=== PATIENT | male | born 1955 ===

== ENCOUNTER 2017-09-09 10:43 | Inpatient (IN) | payer OTHER ==
[2017-09-09 10:44] VITALS: BMI 36.5
[2017-09-09] MEDS ORDERED: Sodium Chloride 0.9% 1,000 ML IV ONE (11:14)
--- NOTE | 2017-09-09 11:53 | RAD ---
HISTORY: Chest pain COMPARISON: Comparison chest 02/15/2013 TECHNIQUE: Chest PA and lateral FINDINGS: LUNGS: Lung vinson are hyperinflation with flattened diaphragms consistent with underlying COPD or and or emphysema. Mild linear scarring changes left lung base. PLEURA: No significant pleural effusion identified. No pneumothorax apparent. CARDIOVASCULAR: Normal. Mild multilevel degenerative spondylosis of the thoracic spine with mild dextroscoliosis at the thoracic region. OSSEOUS STRUCTURES: Minor multilevel degenerative spondylosis of the thoracic spine VISUALIZED UPPER ABDOMEN: Normal. OTHER FINDINGS: None. IMPRESSION: Lung vinson are hyperinflation with flattened diaphragms consistent with underlying COPD or and or emphysema. Mild linear scarring changes left lung base.
[2017-09-09 11:59] LABS: BASO # 0.1 K/uL (0.0-0.2); BASO % 1.1 % (0.0-2.0); EOS # 0.1 K/uL (0.0-0.7); EOS % 1.9 % (0.0-4.0); HEMOGLOBIN 14.5 g/dL (12.0-18.0); LYMPH # 0.9 K/uL (1.0-4.3); LYMPH % 15.7 % (20.0-40.0); MEAN CELL VOLUME 90.1 fL (80.0-94.0); MEAN CORPUSCULAR HEMOGLOBIN 31.2 pg (27.0-31.0); MEAN CORPUSCULAR HGB CONC 34.6 g/dL (33.0-37.0); MEAN PLATELET VOLUME 8.5 fL (7.2-11.7); MONO # 0.5 K/uL (0.0-0.8); NEUT % 72.3 % (50.0-75.0); NRBC % 0.1 % (0.0-2.0); RBC 4.66 Mil/uL (4.40-5.90); RED CELL DISTRIBUTION WIDTH 13.4 % (11.5-14.5); WHITE BLOOD COUNT 5.5 K/uL (4.8-10.8)
[2017-09-09 12:02] LABS: INR 0.9; PROTHROMBIN TIME 10.2 SECONDS (9.7-12.2)
[2017-09-09 12:06] LABS: URINE BILIRUBIN NEGATIVE (NEGATIVE); URINE BLOOD NEGATIVE (NEGATIVE); URINE CLARITY Clear (Clear); URINE COLOR Yellow (YELLOW); URINE GLUCOSE (UA) NORMAL (Normal); URINE LEUKOCYTE ESTERASE NEG Leu/uL (Negative); URINE PROTEIN NEGATIVE (NEGATIVE); URINE UROBILINOGEN NORMAL mg/dL (0.2-1.0)
[2017-09-09 12:20] LABS: ALB/GLOB RATIO 1.7 (1.0-2.1); ALBUMIN 4.4 g/dL (3.5-5.0); ALT/SGPT 37 U/L (21-72); AST/SGOT 41 U/L (17-59); BLOOD UREA NITROGEN 19 mg/dL (9-20); CALCIUM 9.1 mg/dl (8.6-10.4); GFR AFRICAN-AMERICAN > 60; GFR NON-AFRICAN AMERICAN > 60
[2017-09-09 12:28] LABS: B-TYPE NATRIURETIC PEPTIDE 118 pg/mL (0-900)
--- NOTE | 2017-09-09 12:46 | C.PDOC ---
History Of Present Illness 61 yo male w/PMHx of CAD s/p PTCA 2007, come in for evaluation of retrosternal pain intermittent on exertion gradually developed for past week. Pt sts, "get localized pain over my chest area when walk". AT rest, asymptomatic. Last card. work up- 3-4 yrs ago. Otherwise, pt denies fever, chills, recent illness, headache, dizziness, dyspnea, palpitation, abd. pain, V/D, back pain, swelling. Ambulatory in ED, not in any apparent distress. Pt reports, took Plavix 75 mg, Metoprolol 50 mg, Lisinopril this AM. Time Seen by Provider: 09/09/17 11:09 Chief Complaint (Nursing): Chest Pain History Per: Patient Past Medical History Reviewed: Historical Data, Nursing Documentation, Vital Signs Vital Signs: Last Vital Signs Temp 98.2 F 09/09/17 10:57 Pulse 52 L 09/09/17 11:55 Resp 19 09/09/17 11:55 BP 148/88 09/09/17 11:55 Pulse Ox 99 09/09/17 13:38 - Medical History PMH: Asthma, HTN, Hypercholesterolemia Denies: Chronic Kidney Disease Surgical History: Appendectomy - [facility] Procedures COLONOSCOPY (03/17/14) INSERTION OF ONE VASCULAR STENT (02/04/13) INSRT OF DRUG-ELUTING CORON ARTERY STENTS(S) (02/04/13) LEFT HEART CARDIAC CATH (02/04/13) LT HEART ANGIOCARDIOGRAM (02/04/13) PERCUTANEOUS TRANSLUMINAL CORONARY ANGIOPLASTY [PTCA] (02/04/13) PROCEDURE ON SINGLE VESSEL (02/04/13) VENOUS CATHETERIZATION NEC (02/04/13) Family History: States: No Known Family Hx - Social History Hx Tobacco Use: No Hx Alcohol Use: No Hx Substance Use: No - Immunization History Hx Tetanus Toxoid Vaccination: No Hx Influenza Vaccination: Yes Hx Pneumococcal Vaccination: No Review Of Systems Except As Marked, All Systems Reviewed And Found Negative. Constitutional: Negative for: Fever, Chills ENT: Negative for: Throat Pain, Throat Swelling Cardiovascular: Positive for: Chest Pain. Negative for: Palpitations, Paroxysmal Noc. Dyspnea, Edema, Light Headedness Respiratory: Positive for: Shortness of Breath. Negative for: Cough, SOB with Excertion, Pleuritic Pain, Wheezing Gastrointestinal: Negative for: Vomiting, Abdominal Pain, Diarrhea Musculoskeletal: Negative for: Neck Pain, Back Pain Skin: Negative for: Rash Neurological: Negative for: Weakness, Numbness, Altered Mental Status, Headache , Dizziness Physical Exam - Physical Exam Appears: Well, Non-toxic, No Acute Distress Skin: Normal Color, Warm, Dry, No Rash Head: Normacephalic Eye(s): bilateral: PERRL Ear(s): Bilateral: Normal Nose: No Flaring, No Discharge Oral Mucosa: Moist, No Drooling Throat: No Erythema, No Drooling Neck: Trachea Midline, Supple Chest: Symmetrical, No Tenderness Cardiovascular: Rhythm Regular, No Murmur, No JVD Respiratory: No Decreased Breath Sounds, No Accessory Muscle Use, No Stridor, No Wheezing Gastrointestinal/Abdominal: Soft, No Tenderness, No Distention, No Guarding Back: No CVA Tenderness Extremity: Normal ROM, No Pedal Edema Neurological/Psych: Oriented x3, Normal Speech ED Course And Treatment - Laboratory Results Result Diagrams: 09/09/17 11:47 09/09/17 11:47 Lab Interpretation: Abnormal ECG: Interpreted By Me, Viewed By Me Interpretation Of ECG: Sinus horace@47/min, NAD, no acute T wave or ST-T changes. O2 Sat by Pulse Oximetry: 99 Pulse Ox Interpretation: Normal - Radiology CXR: Interpreted by Me, Read By Radiologist CXR Interpretation: Yes: No Acute Disease Progress Note: Pt was OBS in ED for 2 hours and remained stable. On re- evaluation, pt is afebrile, hemodynamicaly stable. Non-toxic. Tolerate Po well in ED. PulseOx 99% rA. Neck: SUpple, (-) JVD, (-) carotid bruits B/L. ENT: no acute findings. Lungs: CTA B/L, BS equal B/L. CVS: (+)S1S2, reg. (-) murmur. Abd: benign, (-) guarding, (-) rebound, (-) RLQ tenderness. Troponin I (+) 0.144. EKG (+) horace, no acute T wave or ST-T changes. results review and discussed with pt, admission recommend. case discussed with and admission arranged. Disposition - Disposition Disposition: HOSPITALIZED Disposition Time: 12:44 Condition: STABLE - Clinical Impression Clinical Impression: Chest pain, Elevated troponin, Symptomatic bradycardia
--- NOTE | 2017-09-09 15:23 | CP.PCM.HP ---
<Anastasia VangDenise - Last Filed: 09/09/17 15:15> History of Present Illness - History of Present Illness History of Present Illness: CC: chest pain with exertion HPI: Patient is a 61 y/o M with PMHx of CAD, TX and stent in 2012, HTN, asthma, IGT who presents today for chest pain. Patient says today he was walking to work which he normally does everyday with no limitation. Today patient had a tightness and burning in his chest which he rated 6/10 and some shortness of breath and nausea. Patient had to take a break in the middle of his walk. He also noticed some right arm heaviness and numbness of note 1 week ago patient had a similar episode of arm heaviness after exercise. Patient says his chest pain is different than when he had his TX in 2012 because it resolves with rest. At rest patient has no complaints. His arm heaviness has resolved. He denies any headaches, vomiting, abdominal pain, diarrhea, or constipation. PMD: Dr. Cancino (clinic- last went 1 year ago) Cardio: used to see Dr. Alvarez PMHx: CAD, TX and stent in 2012, HTN, asthma, IGT Psurg: stent 2012, hernia as a child, SBO as a child Famhx: Mom: DMII, Dad: asthma, CAD Soc: denies tobacco or drugs, used to drink alcohol socially 8 years ago Present on Admission - Present on Admission Any Indicators Present on Admission: No History of DVT/PE: No History of Uncontrolled Diabetes: No Urinary Catheter: No Decubitus Ulcer Present: No Review of Systems - Constitutional Constitutional: absent: Anorexia, Chills - EENT Eyes: absent: Blurred Vision, Change in Vision Nose/Mouth/Throat: absent: Nasal Congestion, Sore Throat, Neck Pain - Cardiovascular Cardiovascular: Chest Pain, Chest Pain with Activity, Dyspnea, Dyspnea on Exertion, Palpitations. absent: Chest Pain at Rest, Claudication, Irregular Heart Rhythm, Leg Edema, Syncope - Respiratory Respiratory: Dyspnea on Exertion. absent: Cough, Dyspnea - Gastrointestinal Gastrointestinal: absent: Abdominal Pain, Constipation, Diarrhea, Heartburn, Nausea, Vomiting - Genitourinary Genitourinary: absent: Difficulty Urinating - Musculoskeletal Musculoskeletal: Numbness (left arm ), Tingling (left arm ). absent: Muscle Cramps, Muscle Weakness - Integumentary Integumentary: absent: Rash - Neurological Neurological: absent: Syncope, Weakness Past Patient History - Past Medical History & Family History Past Medical History?: Yes - Past Social History Smoking Status: Former Smoker - CARDIAC Hx Hypercholesterolemia: Yes Hx Hypertension: Yes - PULMONARY Hx Asthma: Yes - NEUROLOGICAL Hx Neurological Disorder: No - HEENT Hx HEENT Problems: No - RENAL Hx Chronic Kidney Disease: No - ENDOCRINE/METABOLIC Hx Endocrine Disorders: No - HEMATOLOGICAL/ONCOLOGICAL Hx Blood Disorders: No - INTEGUMENTARY Hx Dermatological Problems: No - MUSCULOSKELETAL/RHEUMATOLOGICAL Hx Musculoskeletal Disorders: No - GASTROINTESTINAL Hx Gastrointestinal Disorders: No - GENITOURINARY/GYNECOLOGICAL Hx Genitourinary Disorders: No - PSYCHIATRIC Hx Substance Use: No - SURGICAL HISTORY Hx Appendectomy: Yes - ANESTHESIA Hx Anesthesia: Yes Hx Anesthesia Reactions: No Hx Malignant Hyperthermia: No Meds Allergies/Adverse Reactions: Allergies Allergy/AdvReac Type Severity Reaction Status Date / Time No Known Allergies Allergy Verified 09/09/17 10:59 Physical Exam - Constitutional Appears: Non-toxic, No Acute Distress - Head Exam Head Exam: ATRAUMATIC, NORMAL INSPECTION, NORMOCEPHALIC - Eye Exam Eye Exam: EOMI, Normal appearance - ENT Exam ENT Exam: Mucous Membranes Moist - Neck Exam Neck exam: Negative for: Tenderness - Respiratory Exam Respiratory Exam: Wheezes (mild expiratory wheezing ), NORMAL BREATHING PATTERN. absent: Rales, Respiratory Distress, Stridor - Cardiovascular Exam Cardiovascular Exam: REGULAR RHYTHM, RRR, +S1, +S2 - GI/Abdominal Exam GI & Abdominal Exam: Normal Bowel Sounds, Soft. absent: Tenderness - Extremities Exam Extremities exam: Positive for: normal inspection. Negative for: pedal edema, tenderness - Back Exam Back exam: NORMAL INSPECTION. absent: paraspinal tenderness, rash noted - Neurological Exam Neurological exam: Alert, CN II-XII Intact, Oriented x3 - Psychiatric Exam Psychiatric exam: Normal Affect, Normal Mood - Skin Skin Exam: Intact, Normal Color, Warm Results - Vital Signs Recent Vital Signs: Last Vital Signs Temp 98.1 F 09/09/17 14:37 Pulse 52 L 09/09/17 14:37 Resp 20 09/09/17 14:37 BP 141/96 H 09/09/17 14:37 Pulse Ox 98 09/09/17 14:37 - Labs Result Diagrams: 09/09/17 11:47 09/09/17 11:47 Labs: Laboratory Results - last 24 hr 09/09/17 09/09/17 09/09/17 11:47 11:47 11:47 WBC 5.5 RBC 4.66 Hgb 14.5 Hct 42.0 MCV 90.1 MCH 31.2 H MCHC 34.6 RDW 13.4 Plt Count 218 MPV 8.5 Neut % (Auto) 72.3 Lymph % (Auto) 15.7 L [place] % (Auto) 9.0 Eos % (Auto) 1.9 Baso % (Auto) 1.1 Neut # (Auto) 4.0 Lymph # (Auto) 0.9 L [place] # (Auto) 0.5 Eos # (Auto) 0.1 Baso # (Auto) 0.1 PT 10.2 INR 0.9 APTT 32 Sodium 139 Potassium 4.2 Chloride 104 Carbon Dioxide 25 Anion Gap 14 BUN 19 Creatinine 0.7 L Est GFR ( Amer) > 60 Est GFR (Non-Af Amer) > 60 Random Glucose 106 Calcium 9.1 Total Bilirubin 0.5 AST 41 ALT 37 Alkaline Phosphatase 45 Troponin I 0.1440 H* NT-Pro-B Natriuret Pep 118 Total Protein 7.0 Albumin 4.4 Globulin 2.6 Albumin/Globulin Ratio 1.7 Urine Color Urine Clarity Urine pH Ur Specific [place] Urine Protein Urine Glucose (UA) Urine Ketones Urine Blood Urine Nitrate Urine Bilirubin Urine Urobilinogen Ur Leukocyte Esterase Urine RBC (Auto) 09/09/17 11:57 WBC RBC Hgb Hct MCV MCH MCHC RDW Plt Count MPV Neut % (Auto) Lymph % (Auto) [place] % (Auto) Eos % (Auto) Baso % (Auto) Neut # (Auto) Lymph # (Auto) [place] # (Auto) Eos # (Auto) Baso # (Auto) PT INR APTT Sodium Potassium Chloride Carbon Dioxide Anion Gap BUN Creatinine Est GFR ( Amer) Est GFR (Non-Af Amer) Random Glucose Calcium Total Bilirubin AST ALT Alkaline Phosphatase Troponin I NT-Pro-B Natriuret Pep Total Protein Albumin Globulin Albumin/Globulin Ratio Urine Color Yellow Urine Clarity Clear Urine pH 6.0 Ur Specific [place] 1.015 Urine Protein Negative Urine Glucose (UA) Normal Urine Ketones Negative Urine Blood Negative Urine Nitrate Negative Urine Bilirubin Negative Urine Urobilinogen Normal Ur Leukocyte Esterase Neg Urine RBC (Auto) 2 Assessment & Plan - Assessment and Plan (Free Text) Assessment: Chest pain r/o ACS admitted to telemetry Troponin I .1440 f/u DISHA x 2 and EKG f/u TSH and free T4 f/u d dimer EKG in ED no acute changes ASA given, Plavix 300mg given, Lovenox 55mg sc BID started continue Plavix 75mg po daily, ASA 81mg po daily, Crestor 20mg daily f/u UDS f/u ECHO Dr. Hardy consulted, help appreciated HTN Lopressor 25mg po BID Lisinopril 40 mg po daily Hx CAD continue Plavix 75mg po daily, ASA 81mg po daily, Crestor 20mg daily f/u lipid panel IGT managed with diet f/u HgA1c Prophylaxis SCDs, Lovenox 55mg sc BID heart healthy moderate carb diet <Primo Maria H - Last Filed: 09/09/17 16:57> Results - Vital Signs Recent Vital Signs: Last Vital Signs Temp 98.4 F 09/09/17 15:10 Pulse 45 L 09/09/17 15:10 Resp 20 09/09/17 15:10 BP 140/86 09/09/17 15:10 Pulse Ox 97 09/09/17 15:10 - Labs Result Diagrams: 09/09/17 11:47 09/09/17 11:47 Labs: Laboratory Results - last 24 hr 09/09/17 09/09/17 09/09/17 11:47 11:47 11:47 WBC 5.5 RBC 4.66 Hgb 14.5 Hct 42.0 MCV 90.1 MCH 31.2 H MCHC 34.6 RDW 13.4 Plt Count 218 MPV 8.5 Neut % (Auto) 72.3 Lymph % (Auto) 15.7 L [place] % (Auto) 9.0 Eos % (Auto) 1.9 Baso % (Auto) 1.1 Neut # (Auto) 4.0 Lymph # (Auto) 0.9 L [place] # (Auto) 0.5 Eos # (Auto) 0.1 Baso # (Auto) 0.1 PT 10.2 INR 0.9 APTT 32 Sodium 139 Potassium 4.2 Chloride 104 Carbon Dioxide 25 Anion Gap 14 BUN 19 Creatinine 0.7 L Est GFR ( Amer) > 60 Est GFR (Non-Af Amer) > 60 Random Glucose 106 Calcium 9.1 Total Bilirubin 0.5 AST 41 ALT 37 Alkaline Phosphatase 45 Troponin I 0.1440 H* NT-Pro-B Natriuret Pep 118 Total Protein 7.0 Albumin 4.4 Globulin 2.6 Albumin/Globulin Ratio 1.7 Urine Color Urine Clarity Urine pH Ur Specific [place] Urine Protein Urine Glucose (UA) Urine Ketones Urine Blood Urine Nitrate Urine Bilirubin Urine Urobilinogen Ur Leukocyte Esterase Urine RBC (Auto) 09/09/17 11:57 WBC RBC Hgb Hct MCV MCH MCHC RDW Plt Count MPV Neut % (Auto) Lymph % (Auto) [place] % (Auto) Eos % (Auto) Baso % (Auto) Neut # (Auto) Lymph # (Auto) [place] # (Auto) Eos # (Auto) Baso # (Auto) PT INR APTT Sodium Potassium Chloride Carbon Dioxide Anion Gap BUN Creatinine Est GFR ( Amer) Est GFR (Non-Af Amer) Random Glucose Calcium Total Bilirubin AST ALT Alkaline Phosphatase Troponin I NT-Pro-B Natriuret Pep Total Protein Albumin Globulin Albumin/Globulin Ratio Urine Color Yellow Urine Clarity Clear Urine pH 6.0 Ur Specific [place] 1.015 Urine Protein Negative Urine Glucose (UA) Normal Urine Ketones Negative Urine Blood Negative Urine Nitrate Negative Urine Bilirubin Negative Urine Urobilinogen Normal Ur Leukocyte Esterase Neg Urine RBC (Auto) 2 Attending/Attestation - Attestation I have personally seen and examined this patient.: Yes I have fully participated in the care of the patient.: Yes I have reviewed all pertinent clinical information: Yes Notes (Text): 09/09/17 16:53 Medical attending: Patient was seen and examined by me as well. Agree with the above note by the resident The patient reported that yesterday he was working out on [employer] hard and then this morning when he woke up was feeling fine Then suddenly while working to work today he developed the chest discomfort and arm numbness. The first troponin was borderline positive - he previously had stenting before. Also the patient will need to have additional troponins as well as a D-Dimer. I don't think he has a PE but will check a D-Dimer. The patient was given lovenix, plavix loading dose, and also ASA, statin Primo Maria
[2017-09-09 17:19] LABS: BARBITURATES, UR NEGATIVE (NEGATIVE); BENZODIAZEPINES, UR NEGATIVE (NEGATIVE); OPIATES, UR NEGATIVE (NEGATIVE); PHENCYCLIDINE, UR NEGATIVE (NEGATIVE)
[2017-09-09 19:04] LABS: CK-MB 2.12 ng/mL (0.0-3.38)
[2017-09-09 19:06] LABS: TROPONIN I 0.178 ng/mL (0.00-0.120)
[2017-09-09] MEDS: Enoxaparin 60 mg Syringe SC SCH (21:50)
[2017-09-09 22:29] LABS: CK-MB 1.57 ng/mL (0.0-3.38)
[2017-09-09 22:31] LABS: TROPONIN I 0.147 ng/mL (0.00-0.120)
[2017-09-10 06:28] LABS: BASO % 0.6 % (0.0-2.0); EOS # 0.2 K/uL (0.0-0.7); EOS % 5.1 % (0.0-4.0); HEMOGLOBIN 13.7 g/dL (12.0-18.0); LYMPH % 21.2 % (20.0-40.0); MEAN CELL VOLUME 91.2 fL (80.0-94.0); MEAN CORPUSCULAR HEMOGLOBIN 30.4 pg (27.0-31.0); MEAN CORPUSCULAR HGB CONC 33.4 g/dL (33.0-37.0); MEAN PLATELET VOLUME 9.2 fL (7.2-11.7); MONO # 0.5 K/uL (0.0-0.8); MONO % 10.3 % (0.0-10.0); NEUT # 3.1 K/uL (1.8-7.0); NEUT % 62.8 % (50.0-75.0); NRBC % 0.1 % (0.0-2.0); RBC 4.51 Mil/uL (4.40-5.90); RED CELL DISTRIBUTION WIDTH 13.7 % (11.5-14.5); WHITE BLOOD COUNT 4.9 K/uL (4.8-10.8)
[2017-09-10 07:29] LABS: ALB/GLOB RATIO 1.5 (1.0-2.1); ALBUMIN 3.6 g/dL (3.5-5.0); ALT/SGPT 33 U/L (21-72); AST/SGOT 33 U/L (17-59); BLOOD UREA NITROGEN 19 mg/dL (9-20); CALCIUM 8.6 mg/dl (8.6-10.4); GFR AFRICAN-AMERICAN > 60; GFR NON-AFRICAN AMERICAN > 60; HDL CHOLESTEROL 45 mg/dL (30-70)
[2017-09-10 07:40] LABS: LDL CHOLESTEROL 87 mg/dL (0-129)
[2017-09-10] MEDS ORDERED: Albuterol-Ipratrop 3 mg / 0.5 (3 ml) UD INH PRN (07:45)
[2017-09-10] MEDS ORDERED: Albuterol-Ipratrop 3 mg / 0.5 (3 ml) UD INH ONE (08:00)
--- NOTE | 2017-09-10 09:52 | CP.PCM.PN ---
<Anastasia Vang - Last Filed: 09/10/17 11:07> Subjective - Date & Time of Evaluation Date of Evaluation: 09/10/17 Time of Evaluation: 07:00 - Subjective Subjective: PGY2- Progress note for Dr. Maria Patient seen and examined at bedside. Patient in NAD. Patient says he has no chest pain at rest, but the chest pain comes back with sitting up and moving around. Patient says his right arm numbness and heaviness has resolved. Patient denies any shortness of breath, palpitations, abdominal pain, nausea, vomiting, constipation, or diarrhea. Objective - Vital Signs/Intake and Output Vital Signs (last 24 hours): Temp Pulse Resp BP Pulse Ox 98.1 F 50 L 20 137/81 97 09/10/17 07:10 09/10/17 08:43 09/10/17 07:10 09/10/17 07:10 09/10/17 07:10 Intake and Output: 09/10/17 09/10/17 06:59 18:59 Intake Total 400 Balance 400 - Medications Medications: Current Medications Albuterol/Ipratropium (Duoneb 3 Mg/0.5 Mg (3 Ml) Ud) 3 ml INH RQ6 PRN PRN Reason: Wheezing Aspirin (Aspirin Chewable) 81 mg PO DAILY [facility] Carvedilol (Coreg) 3.125 mg PO BID [facility] Clopidogrel Bisulfate (Plavix) 75 mg PO DAILY [facility] Enoxaparin Sodium (Lovenox) 55 mg SC Q12 [facility] Last Admin: 09/09/17 21:50 Dose: 55 mg Lisinopril (Zestril) 40 mg PO DAILY [facility] Rosuvastatin Calcium (Crestor) 20 mg PO HS [facility] Last Admin: 09/09/17 21:50 Dose: 20 mg - Labs Labs: 09/10/17 06:20 09/10/17 06:20 PT 10.2 SECONDS (9.7-12.2) 09/09/17 11:47 INR 0.9 09/09/17 11:47 APTT 32 SECONDS (21-34) 09/09/17 11:47 - Additional Findings Additional findings: - Constitutional Appears: Non-toxic, No Acute Distress - Head Exam Head Exam: ATRAUMATIC, NORMAL INSPECTION, NORMOCEPHALIC - Eye Exam Eye Exam: EOMI, Normal appearance - ENT Exam ENT Exam: Mucous Membranes Moist - Neck Exam Neck exam: Negative for: Tenderness - Respiratory Exam Respiratory Exam: Wheezes (mild expiratory wheezing ), NORMAL BREATHING PATTERN. absent: Rales, Respiratory Distress, Stridor - Cardiovascular Exam Cardiovascular Exam: REGULAR RHYTHM, RRR, +S1, +S2 - GI/Abdominal Exam GI & Abdominal Exam: Normal Bowel Sounds, Soft. absent: Tenderness - Extremities Exam Extremities exam: Positive for: normal inspection. Negative for: pedal edema, tenderness - Back Exam Back exam: NORMAL INSPECTION. absent: paraspinal tenderness, rash noted - Neurological Exam Neurological exam: Alert, CN II-XII Intact, Oriented x3 - Psychiatric Exam Psychiatric exam: Normal Affect, Normal Mood - Skin Skin Exam: Intact, Normal Color, Warm Assessment and Plan - Assessment and Plan (Free Text) Assessment: Chest pain r/o ACS admitted to telemetry Troponin I .1440 --> .1780 --> .1470 d dimer negative TSH: .38 free T4: 1.27 EKG in ED no acute changes ASA given, Plavix 300mg given, Lovenox 55mg sc BID started continue Plavix 75mg po daily, ASA 81mg po daily, Crestor 20mg daily UDS negative f/u ECHO Dr. Hardy consulted, help appreciated HTN Lopressor stopped due to low HR, started on Coreg 3.125mg po BID Lisinopril 40 mg po daily Hx CAD continue Plavix 75mg po daily, ASA 81mg po daily, Crestor 20mg daily f/u lipid panel IGT managed with diet HgA1c: 5.9 Prophylaxis SCDs, Lovenox 55mg sc BID heart healthy moderate carb diet <Primo Maria - Last Filed: 09/10/17 13:43> Objective - Vital Signs/Intake and Output Vital Signs (last 24 hours): Temp Pulse Resp BP Pulse Ox 98.1 F 52 L 20 137/81 97 09/10/17 07:10 09/10/17 11:28 09/10/17 07:10 09/10/17 07:10 09/10/17 07:10 Intake and Output: 09/10/17 09/10/17 06:59 18:59 Intake Total 400 Balance 400 - Medications Medications: Current Medications Albuterol/Ipratropium (Duoneb 3 Mg/0.5 Mg (3 Ml) Ud) 3 ml INH RQ6 PRN PRN Reason: Wheezing Aspirin (Aspirin Chewable) 81 mg PO DAILY [facility] Last Admin: 09/10/17 10:09 Dose: 81 mg Carvedilol (Coreg) 3.125 mg PO BID [facility] Last Admin: 09/10/17 10:04 Dose: Not Given Clopidogrel Bisulfate (Plavix) 75 mg PO DAILY [facility] Last Admin: 09/10/17 10:02 Dose: 75 mg Enoxaparin Sodium (Lovenox) 55 mg SC Q12 [facility] Last Admin: 09/10/17 10:02 Dose: 55 mg Lisinopril (Zestril) 40 mg PO DAILY [facility] Last Admin: 09/10/17 10:02 Dose: 40 mg Rosuvastatin Calcium (Crestor) 20 mg PO HS [facility] Last Admin: 09/09/17 21:50 Dose: 20 mg - Labs Labs: 09/10/17 06:20 09/10/17 06:20 PT 10.2 SECONDS (9.7-12.2) 09/09/17 11:47 INR 0.9 09/09/17 11:47 APTT 32 SECONDS (21-34) 09/09/17 11:47 Attending/Attestation - Attestation I have personally seen and examined this patient.: Yes I have fully participated in the care of the patient.: Yes I have reviewed all pertinent clinical information, including history, physical exam and plan: Yes Notes (Text): 09/10/17 13:43 Medical attending: Patient was seen and examined by me, reviewed the above note by medical center representative and agree with the above note. The patient reported that he was doing much better today. The heaviness that was in his right arm as well as chest pressure had resolved overnight. His cardiac enzymes down trended were still pending echo at this moment as well as a cardiology evaluation. The 12-lead EKGs overnight were stable He remains on the twice a day subcutaneous Lovenox twice a day. He also remains on the Plavix as well as well as blood pressure control medication. Were also continue with the statin as well as the baby aspirin and low-dose beta yeny Primo Maria
[2017-09-10] MEDS: Enoxaparin 60 mg Syringe SC SCH ×2 (10:02→21:23)
--- NOTE | 2017-09-10 19:30 | CARD ---
APPROVED REPORT EKG Measurement Heart [id number] <Conclusion> Sinus bradycardia Otherwise normal ECG
--- NOTE | 2017-09-10 19:30 | CARD ---
APPROVED REPORT EKG Measurement Heart [id number] <Conclusion> Sinus bradycardia Otherwise normal ECG
--- NOTE | 2017-09-10 19:30 | CARD ---
APPROVED REPORT EKG Measurement Heart [id number] [id number] <Conclusion> Sinus bradycardia Otherwise normal ECG
--- NOTE | 2017-09-10 21:42 | CARD ---
APPROVED REPORT EXAM: Two-dimensional and M-mode echocardiogram with Doppler and color Doppler. Other Information Quality : GoodRhythm : INDICATION Cardiac Disease: CAD Chest Pain ELEVATED TROPONIN 2D DIMENSIONS IVSd0.9 (0.7-1.1cm)LVDd4.5 (3.9-5.9cm) PWd0.9 (0.7-1.1cm)LVDs3.0 (2.5-4.0cm) FS (%) 34.3 %LVEF (%)66.0 (>50%) CO2.0 L/min M-Mode DIMENSIONS RVDd2.32 (2.1-3.2cm)Left Atrium (MM)3.19 (2.5-4.0cm) IVSd0.75 (0.7-1.1cm)Aortic Root3.17 (2.2-3.7cm) LVDd4.87 (4.0-5.6cm)Aortic Cusp Exc.2.04 (1.5-2.0cm) PWd0.93 (0.7-1.1cm)FS (%) 40 % LVDs2.92 (2.0-3.8cm)LVEF (%)70 (>50%) Aortic Valve AI P 1/2 [id number] Mitral Valve MV E Yriiighl93.4cm/sMV A Swcilqqq61.2cm/sE/A ratio1.3 TDI E/Lateral E'0.0E/Medial E'0.0 Tricuspid Valve TR Peak [id number]/sTR Peak [id number] LEFT VENTRICLE The left ventricle is normal size. There is normal left ventricular wall thickness. Left ventricle systolic function is normal. The Ejection Fraction is 65-70%. There is normal LV segmental wall motion. The left ventricular diastolic function is normal. No left ventricle thrombus noted on this study. RIGHT VENTRICLE The right ventricle is normal size. The right ventricular systolic function is normal. ATRIA The left atrium size is normal. The right atrium size is normal. AORTIC VALVE The aortic valve is mildly to moderately sclerotic. The aortic valve is trileaflet. There is trace to mild aortic regurgitation. There is no aortic valvular stenosis. There is no aortic valvular vegetation. MITRAL VALVE Mitral annular calcification is mild. There is no evidence of mitral valve prolapse. There is no mitral valve stenosis. Mitral regurgitation is trace to mild. TRICUSPID VALVE The tricuspid valve is normal in structure. There is mild tricuspid regurgitation. Right ventricular systolic pressure is estimated at less than 30 mmHg. There is no pulmonary hypertension. There is no tricuspid valve prolapse or vegetation. There is no tricuspid valve stenosis. PULMONIC VALVE The pulmonic valve is not well visualized. There is no pulmonic valvular regurgitation. GREAT VESSELS The aortic root is normal in size. The IVC is normal in size and collapses >50% with inspiration. PERICARDIAL EFFUSION There is no pericardial effusion. There is no pleural effusion. <Conclusion> The left ventricle is normal size. Left ventricle systolic function is normal. The Ejection Fraction is 65-70%. The left ventricular diastolic function is normal. The right ventricle is normal size. The right ventricular systolic function is normal. The left atrium size is normal. The right atrium size is normal. There is trace to mild aortic regurgitation. Mitral regurgitation is trace to mild. There is mild tricuspid regurgitation.
[2017-09-11 06:41] LABS: BASO % 0.4 % (0.0-2.0); EOS # 0.2 K/uL (0.0-0.7); EOS % 4.4 % (0.0-4.0); HEMOGLOBIN 13.9 g/dL (12.0-18.0); LYMPH % 18.8 % (20.0-40.0); MEAN CELL VOLUME 91.3 fL (80.0-94.0); MEAN CORPUSCULAR HEMOGLOBIN 30.9 pg (27.0-31.0); MEAN CORPUSCULAR HGB CONC 33.8 g/dL (33.0-37.0); MONO # 0.5 K/uL (0.0-0.8); MONO % 8.5 % (0.0-10.0); NEUT # 3.6 K/uL (1.8-7.0); NEUT % 67.9 % (50.0-75.0); NRBC % 0.1 % (0.0-2.0); RBC 4.49 Mil/uL (4.40-5.90); RED CELL DISTRIBUTION WIDTH 13.4 % (11.5-14.5); WHITE BLOOD COUNT 5.4 K/uL (4.8-10.8)
[2017-09-11 06:47] LABS: ALB/GLOB RATIO 1.6 (1.0-2.1); ALBUMIN 3.9 g/dL (3.5-5.0); ALT/SGPT 29 U/L (21-72); AST/SGOT 33 U/L (17-59); BLOOD UREA NITROGEN 23 mg/dL (9-20); CALCIUM 8.9 mg/dl (8.6-10.4); GFR AFRICAN-AMERICAN > 60; GFR NON-AFRICAN AMERICAN > 60
[2017-09-11] MEDS: Enoxaparin 60 mg Syringe SC SCH ×2 (09:30→22:03)
--- NOTE | 2017-09-11 13:48 | CP.PCM.PN ---
<Anastasia Vang - Last Filed: 09/11/17 17:20> Subjective - Date & Time of Evaluation Date of Evaluation: 09/11/17 Time of Evaluation: 07:00 - Subjective Subjective: PGY2- Progress Note for Dr. Maria Patient seen and examined at bedside and in no acute distress. Patient says he has not been having any chest pain but feels his heart "shake" when he sits up or moves around. He says it is hard to explain, but maybe it is the feeling of his heart beating fast. Patient otherwise has no complaints. Patient denies dizziness, headache, shortness of breath, abdominal pain, nausea, vomiting, constipation, or diarrhea. Of note, patient got up and walked down the wang with us without difficulty and without any pain. Objective - Vital Signs/Intake and Output Vital Signs (last 24 hours): Temp Pulse Resp BP Pulse Ox 98.2 F 77 20 164/99 H 96 09/11/17 07:00 09/11/17 12:00 09/11/17 07:00 09/11/17 09:29 09/11/17 07:00 - Medications Medications: Current Medications Albuterol/Ipratropium (Duoneb 3 Mg/0.5 Mg (3 Ml) Ud) 3 ml INH RQ6 PRN PRN Reason: Wheezing Last Admin: 09/11/17 07:47 Dose: 3 ml Aspirin (Aspirin Chewable) 81 mg PO DAILY [facility] Last Admin: 09/11/17 09:30 Dose: 81 mg Carvedilol (Coreg) 3.125 mg PO BID [facility] Last Admin: 09/11/17 09:30 Dose: 3.125 mg Clopidogrel Bisulfate (Plavix) 75 mg PO DAILY [facility] Last Admin: 09/11/17 09:30 Dose: 75 mg Enoxaparin Sodium (Lovenox) 55 mg SC Q12 [facility] Last Admin: 09/11/17 09:30 Dose: 55 mg Lisinopril (Zestril) 40 mg PO DAILY [facility] Last Admin: 09/11/17 09:30 Dose: 40 mg Rosuvastatin Calcium (Crestor) 20 mg PO HS [facility] Last Admin: 09/10/17 21:23 Dose: 20 mg - Labs Labs: 09/11/17 06:21 09/11/17 06:21 PT 10.2 SECONDS (9.7-12.2) 09/09/17 11:47 INR 0.9 09/09/17 11:47 APTT 32 SECONDS (21-34) 09/09/17 11:47 - Constitutional Appears: Non-toxic, No Acute Distress - Head Exam Head Exam: ATRAUMATIC, NORMAL INSPECTION, NORMOCEPHALIC - Eye Exam Eye Exam: EOMI, Normal appearance - ENT Exam ENT Exam: Mucous Membranes Moist - Neck Exam Neck Exam: Full ROM. absent: Tenderness - Respiratory Exam Respiratory Exam: Clear to Ausculation Bilateral, NORMAL BREATHING PATTERN. absent: Rales, Rhonchi, Wheezes, Respiratory Distress, Stridor - Cardiovascular Exam Cardiovascular Exam: REGULAR RHYTHM, RRR, +S1, +S2 - GI/Abdominal Exam GI & Abdominal Exam: Soft, Normal Bowel Sounds. absent: Tenderness - Extremities Exam Extremities Exam: Normal Inspection. absent: Pedal Edema, Tenderness - Back Exam Back Exam: NORMAL INSPECTION - Neurological Exam Neurological Exam: Alert, Awake, Oriented x3 - Psychiatric Exam Psychiatric exam: Normal Affect, Normal Mood - Skin Skin Exam: Intact, Normal Color, Warm Assessment and Plan - Assessment and Plan (Free Text) Assessment: Chest pain r/o ACS admitted to telemetry Troponin I .1440 --> .1780 --> .1470 d dimer negative TSH: .38 free T4: 1.27 EKG in ED no acute changes ASA given, Plavix 300mg given, Lovenox 55mg sc BID started continue Plavix 75mg po daily, ASA 81mg po daily, Crestor 20mg daily UDS negative ECHO: LVEF 70, trace to mild aortic regurg, mitral regurg trace to mild, mild tricuspid regurg Dr. Hardy consulted, help appreciated patient for cardiac cath tomorrow, NPO after midnight HTN Lopressor stopped due to low HR, started on Coreg 3.125mg po BID Lisinopril 40 mg po daily Hx CAD continue Plavix 75mg po daily, ASA 81mg po daily, Crestor 20mg daily lipid panel: triglycerides: 122, cholesterol: 147, LDL: 87, HDL: 45 IGT managed with diet HgA1c: 5.9 Prophylaxis SCDs, Lovenox 55mg sc BID heart healthy moderate carb diet <Primo Maria - Last Filed: 09/11/17 19:10> Objective - Vital Signs/Intake and Output Vital Signs (last 24 hours): Temp Pulse Resp BP Pulse Ox 98.0 F 61 20 133/85 97 09/11/17 15:00 09/11/17 16:22 09/11/17 15:00 09/11/17 15:00 09/11/17 15:00 Intake and Output: 09/11/17 09/12/17 18:59 06:59 Intake Total 400 Balance 400 - Medications Medications: Current Medications Albuterol/Ipratropium (Duoneb 3 Mg/0.5 Mg (3 Ml) Ud) 3 ml INH RQ6 PRN PRN Reason: Wheezing Last Admin: 09/11/17 07:47 Dose: 3 ml Aspirin (Aspirin Chewable) 81 mg PO DAILY [facility] Last Admin: 09/11/17 09:30 Dose: 81 mg Carvedilol (Coreg) 3.125 mg PO BID [facility] Last Admin: 09/11/17 09:30 Dose: 3.125 mg Clopidogrel Bisulfate (Plavix) 75 mg PO DAILY [facility] Last Admin: 09/11/17 09:30 Dose: 75 mg Enoxaparin Sodium (Lovenox) 55 mg SC Q12 [facility] Last Admin: 09/11/17 09:30 Dose: 55 mg Nitroglycerin/Dextrose (Nitroglycerin 50 Mg/250 Ml D5w) 50 mg in 250 mls @ 3 mls/hr IV .Q24H [facility]; 10 MCG/MIN PRN Reason: Protocol Lisinopril (Zestril) 40 mg PO DAILY [facility] Last Admin: 09/11/17 09:30 Dose: 40 mg Rosuvastatin Calcium (Crestor) 20 mg PO HS [facility] Last Admin: 09/10/17 21:23 Dose: 20 mg - Labs Labs: 09/11/17 06:21 09/11/17 06:21 PT 10.2 SECONDS (9.7-12.2) 09/09/17 11:47 INR 0.9 09/09/17 11:47 APTT 32 SECONDS (21-34) 09/09/17 11:47 Attending/Attestation - Attestation I have personally seen and examined this patient.: Yes I have fully participated in the care of the patient.: Yes I have reviewed all pertinent clinical information, including history, physical exam and plan: Yes Notes (Text): 09/11/17 19:08 Medical Attending: Patient was seen and examined by me ealier with the medicalr resident Patient had cardiac cath this afternoon and per discussion with cardiology will [place] [facility] [place]. At this time moving patient to the ICU, needs a nitroglycerin ggt for chest pain. NPO after midnight Primo Maria
[2017-09-11] MEDS ORDERED: Iohexol 350mg/ml 100 ML ONE (17:58)
[2017-09-11] MEDS ORDERED: Midazolam 2 MG/2 ML VIAL ONE (17:58)
[2017-09-11] MEDS ORDERED: Nitroglycerin 50mg in D5W 50 MG/250 ML BOTTLE IV ONE (19:02)
--- NOTE | 2017-09-11 19:09 | CP.PCM.PN ---
Subjective - Date & Time of Evaluation Date of Evaluation: 09/11/17 Time of Evaluation: 19:05 - Subjective Subjective: Patient s/p Cath Non ST elevation GA L Main: Patent LAD: Proximal to mid diffuse 40-50% stenosis L Cx: Proximal 99% stenosis RCA: Prior stent patent. instent 20-30% stenosis EF: 60% After coming out of the lab patient started complaining of chest pain Stat EKG: No ST elevations Tridal drip added\Continue all other meds resume diet Bed rest till 11pm NPO after Midnight Possible PCI tomorrow Unable to reach [place] civil laboratory technician for confirmation Objective - Vital Signs/Intake and Output Vital Signs (last 24 hours): Temp Pulse Resp BP Pulse Ox 98.0 F 61 20 133/85 97 09/11/17 15:00 09/11/17 16:22 09/11/17 15:00 09/11/17 15:00 09/11/17 15:00 Intake and Output: 09/11/17 09/12/17 18:59 06:59 Intake Total 400 Balance 400 - Medications Medications: Current Medications Albuterol/Ipratropium (Duoneb 3 Mg/0.5 Mg (3 Ml) Ud) 3 ml INH RQ6 PRN PRN Reason: Wheezing Last Admin: 09/11/17 07:47 Dose: 3 ml Aspirin (Aspirin Chewable) 81 mg PO DAILY [facility] Last Admin: 09/11/17 09:30 Dose: 81 mg Carvedilol (Coreg) 3.125 mg PO BID [facility] Last Admin: 09/11/17 09:30 Dose: 3.125 mg Clopidogrel Bisulfate (Plavix) 75 mg PO DAILY [facility] Last Admin: 09/11/17 09:30 Dose: 75 mg Enoxaparin Sodium (Lovenox) 55 mg SC Q12 [facility] Last Admin: 09/11/17 09:30 Dose: 55 mg Lisinopril (Zestril) 40 mg PO DAILY [facility] Last Admin: 09/11/17 09:30 Dose: 40 mg Rosuvastatin Calcium (Crestor) 20 mg PO HS [facility] Last Admin: 09/10/17 21:23 Dose: 20 mg - Labs Labs: 09/11/17 06:21 09/11/17 06:21 PT 10.2 SECONDS (9.7-12.2) 09/09/17 11:47 INR 0.9 09/09/17 11:47 APTT 32 SECONDS (21-34) 09/09/17 11:47
[2017-09-11] MEDS ORDERED: Nitroglycerin 50mg in D5W 50 MG/250 ML BOTTLE IV SCH (19:15)
--- NOTE | 2017-09-11 22:26 | CP.PCM.CON ---
History of Present Illness - History of Present Illness History of Present Illness: Attending: Dr Maria PMD: Dr Cancino Cadiologist: Dr Hardy Reason for Consult: Critical care management Post Cardiac cath Chief Complaint: Chest Pain The patient was seen and examined in th4e ICU HPI: 61 years old male with hx of CAD s/p Stent, HTN was admitted to the [facility] on 09/09/17 for chest pain and found to have elevated troponins. He was taken to the brush clearing laborer today 09/11/17 where the Proximal Left Circumflex Artery was found to be 99% stenosed. He refers chest pain when he was moved from the brush clearing laborer stretcher to bed and bed to stretcher. Tridil was started by the Typing Office Worker. PMH: HTN; Asthma; HLD; CAD s/p Stent 2012 PSH: Appendectomy; SMO/ Hernia repair in child toney SH: Drank alcohol in the past, Quit 8yers ago; No illegal drug use; Former Smoker FH; Mother: DM Father: CAD; Asthma Allergies: HARRIET Medication: Reviewed Review of Systems - Constitutional Constitutional: absent: Anorexia, Chills, Fever, Headache, Lethargy - EENT Eyes: Requires Corrective Lenses. absent: Blurred Vision, Diplopia, Floaters, Sees Flashes Ears: absent: Decreased Hearing, Ear Discharge, Tinnitus Nose/Mouth/Throat: absent: Epistaxis, Nasal Congestion, Sinus Pain, Sinus Pressure - Cardiovascular Cardiovascular: Chest Pain with Activity, Dyspnea. absent: Lightheadedness, Palpitations - Respiratory Respiratory: Dyspnea. absent: Cough, Wheezing, Stridor - Gastrointestinal Gastrointestinal: absent: Abdominal Pain, Constipation, Diarrhea, Nausea, Vomiting - Genitourinary Genitourinary: absent: Dysuria, Flank Pain, Urinary Frequency - Musculoskeletal Musculoskeletal: absent: Arthralgias, Muscle Weakness, Myalgias - Integumentary Integumentary: absent: Skin Ulcer, Sores, Striae, Swelling - Neurological Neurological: absent: Confusion, Focal Weakness, Headaches, Weakness - Psychiatric Psychiatric: absent: Anxiety, Depression, Panic Attacks - Endocrine Endocrine: absent: Palpitations, Polydipsia, Polyphagia, Polyuria - Hematologic/Lymphatic Hematologic: absent: Easy Bleeding, Easy Bruising Past Patient History - Past Medical History & Family History Past Medical History?: Yes - Past Social History Smoking Status: Former Smoker Chewing Tobacco Use: No Cigar Use: No Alcohol: None Drugs: Denies - CARDIAC Hx Cardiac Disorders: Yes Hx Heart Attack: Yes Hx Hypercholesterolemia: Yes Hx Hypertension: Yes - PULMONARY Hx Respiratory Disorders: Yes Hx Asthma: Yes - NEUROLOGICAL Hx Neurological Disorder: No - HEENT Hx HEENT Problems: No - RENAL Hx Chronic Kidney Disease: No - ENDOCRINE/METABOLIC Hx Endocrine Disorders: No - HEMATOLOGICAL/ONCOLOGICAL Hx Blood Disorders: No - INTEGUMENTARY Hx Dermatological Problems: No - MUSCULOSKELETAL/RHEUMATOLOGICAL Hx Falls: No - GASTROINTESTINAL Hx Gastrointestinal Disorders: No - GENITOURINARY/GYNECOLOGICAL Hx Genitourinary Disorders: No - PSYCHIATRIC Hx Substance Use: No - SURGICAL HISTORY Hx Surgeries: Yes Hx Appendectomy: Yes - ANESTHESIA Hx Anesthesia: Yes Hx Anesthesia Reactions: No Hx Malignant Hyperthermia: No Meds Allergies/Adverse Reactions: Allergies Allergy/AdvReac Type Severity Reaction Status Date / Time No Known Allergies Allergy Verified 09/09/17 10:59 - Medications Medications: Current Medications Albuterol/Ipratropium (Duoneb 3 Mg/0.5 Mg (3 Ml) Ud) 3 ml INH RQ6 PRN PRN Reason: Wheezing Last Admin: 09/11/17 07:47 Dose: 3 ml Aspirin (Aspirin Chewable) 81 mg PO DAILY [facility] Last Admin: 09/11/17 09:30 Dose: 81 mg Carvedilol (Coreg) 3.125 mg PO BID [facility] Last Admin: 09/11/17 09:30 Dose: 3.125 mg Clopidogrel Bisulfate (Plavix) 75 mg PO DAILY [facility] Last Admin: 09/11/17 09:30 Dose: 75 mg Enoxaparin Sodium (Lovenox) 55 mg SC Q12 [facility] Last Admin: 09/11/17 22:03 Dose: 55 mg Nitroglycerin/Dextrose (Nitroglycerin 50 Mg/250 Ml D5w) 50 mg in 250 mls @ 3 mls/hr IV .Q24H [facility]; 10 MCG/MIN PRN Reason: Protocol Lisinopril (Zestril) 40 mg PO DAILY [facility] Last Admin: 09/11/17 09:30 Dose: 40 mg Rosuvastatin Calcium (Crestor) 20 mg PO HS [facility] Last Admin: 09/11/17 22:04 Dose: 20 mg Physical Exam - Constitutional Appears: No Acute Distress - Head Exam Head Exam: ATRAUMATIC, NORMAL INSPECTION, NORMOCEPHALIC - Eye Exam Eye Exam: EOMI, Normal appearance Pupil Exam: NORMAL ACCOMODATION, PERRL - ENT Exam ENT Exam: Mucous Membranes Moist, Normal Exam - Neck Exam Neck exam: Positive for: Full Rom, Normal Inspection. Negative for: Lymphadenopathy, Tenderness - Respiratory Exam Respiratory Exam: Clear to Auscultation Bilateral. absent: Rales, Rhonchi, Wheezes - Cardiovascular Exam Cardiovascular Exam: REGULAR RHYTHM, RRR, +S1, +S2. absent: Gallop - GI/Abdominal Exam GI & Abdominal Exam: Normal Bowel Sounds, Soft. absent: Mass, Organomegaly, Tenderness - Rectal Exam Rectal Exam: Deferred - Extremities Exam Extremities exam: Positive for: full ROM, normal inspection. Negative for: calf tenderness, joint swelling, pedal edema - Back Exam Back exam: FULL ROM, NORMAL INSPECTION. absent: CVA tenderness (L), CVA tenderness (R) - Neurological Exam Neurological exam: Alert, CN II-XII Intact, Oriented x3, Reflexes Normal - Psychiatric Exam Psychiatric exam: Normal Affect, Normal Mood - Skin Skin Exam: Dry, Normal Color, Warm Results - Vital Signs Recent Vital Signs: Last Vital Signs Temp 97.4 F L 09/11/17 20:00 Pulse 66 09/11/17 20:50 Resp 16 09/11/17 20:50 BP 126/83 09/11/17 20:45 Pulse Ox 96 09/11/17 20:50 - Labs Result Diagrams: 09/11/17 06:21 09/11/17 06:21 Labs: Laboratory Results - last 24 hr 09/11/17 09/11/17 06:21 06:21 WBC 5.4 RBC 4.49 Hgb 13.9 Hct 41.0 MCV 91.3 MCH 30.9 MCHC 33.8 RDW 13.4 Plt Count 192 MPV 9.0 Neut % (Auto) 67.9 Lymph % (Auto) 18.8 L Rains % (Auto) 8.5 Eos % (Auto) 4.4 H Baso % (Auto) 0.4 Neut # (Auto) 3.6 Lymph # (Auto) 1.0 Rains # (Auto) 0.5 Eos # (Auto) 0.2 Baso # (Auto) 0.0 Sodium 139 Potassium 4.4 Chloride 103 Carbon Dioxide 25 Anion Gap 15 BUN 23 H Creatinine 0.8 Est GFR ( Amer) > 60 Est GFR (Non-Af Amer) > 60 Random Glucose 107 Calcium 8.9 Phosphorus 4.8 H Magnesium 2.1 Total Bilirubin 0.4 AST 33 ALT 29 Alkaline Phosphatase 41 Total Protein 6.4 Albumin 3.9 Globulin 2.5 Albumin/Globulin Ratio 1.6 - Imaging and Cardiology Cardiac Cath Status: Report reviewed by me Additional comment: Cardiac Cath 09/11/[address] elevation AL L Main: Patent LAD: Proximal to mid diffuse 40-50% stenosis L Cx: Proximal 99% stenosis RCA: Prior stent patent. instent 20-30% stenosis EF: 60% Assessment & Plan - Assessment and Plan (Free Text) Assessment: #. NSTEMI #. HTN #. Asthma #. CAD s/p Stent Plan: 61 years old male with hx of CAD s/p Stent, HTN was admitted to the [facility] on 09/09/17 for chest pain and found to have elevated troponins. He was taken to the brush clearing laborer today 09/11/17 where the Proximal Left Circumflex Artery was found to be 99% stenosed. He refers chest pain when he was moved from the brush clearing laborer stretcher to bed and bed to stretcher. Tridil was started by the Typing Office Worker. #. NSTEMI s/p Stent with 99% stenosis of the Left Cercumflex artery - Dr Hardy machine stapler on consult - Patient for Coronary artery stenting at [facility] on 09/13/17 - Tridil - ASA/Plavix/Coreg/Lovenox #. HTN - Lisinopril/Coreg - Follow Blood pressurs #. Asthma - Duoneb PRN #. CAD - ASA/Plavix/Crestor #. DVT Prophylaxis: SCD and The patient is on Lovenox #. Code Status: Full - Date & Time Date: 09/11/17 Time: 22:26
--- NOTE | 2017-09-12 05:07 | CARDCATH ---
PROCEDURE DATE: 09/11/2017 PROCEDURES: 1. Left heart catheterization. 2. Coronary angiogram. CLINICAL INDICATIONS: 1. Chest pain. 2. Non-ST elevation myocardial infarction. 3. History of coronary artery disease. 4. [place], status post right coronary artery stent placement. REFERRING PHYSICIAN: Primo Maria DO PERFORMING PHYSICIAN: Dr. Pedro Hardy. DETAILS OF PROCEDURE: After informed consent, the patient was prepped and draped in the usual sterile fashion. Lidocaine 2% was given in the right groin for local anesthesia. Using micropuncture technique, 6-Greek sheath was introduced into right common femoral artery. A JL4 6-Greek diagnostic catheter was engaged into left main coronary artery. Contrast injected and left coronary angiogram was done. Then, JR4 6-Greek diagnostic catheter crossed into left ventricle. LV end-diastolic pressure measured. Contrast injected and LV angiogram was done. Then the catheter was pulled back across the aortic valve. Gradient across the aortic valve was measured. Then the same catheter was engaged into right coronary artery. Contrast was injected and right coronary angiogram was done. The patient tolerated the procedure well. FINDINGS: 1. Left main coronary artery is patent. 2. LAD has mid to distal 40% diffuse disease. Distal LAD is patent. 3. Left circumflex has a proximal 99% stenosis. Distal left circumflex is patent. 4. Right coronary artery is a dominant artery. Stent in the right coronary artery is patent; however, there is a 20% to 30% in-stent restenosis. 5. LV ejection fraction is approximately 60%. No wall motion abnormality is noted. EDP is 15. No gradient across the aortic valve. IMPRESSION: Single-vessel critical coronary artery disease. Moderate disease in both left anterior descending artery and right coronary artery. PLAN: The patient will be scheduled for elective intervention of circumflex at [facility]. Pedro Hardy MD
[2017-09-12 06:24] LABS: BASO % 0.1 % (0.0-2.0); EOS # 0.1 K/uL (0.0-0.7); EOS % 1.1 % (0.0-4.0); HEMOGLOBIN 13.8 g/dL (12.0-18.0); LYMPH # 0.9 K/uL (1.0-4.3); LYMPH % 13.5 % (20.0-40.0); MEAN CELL VOLUME 90.7 fL (80.0-94.0); MEAN CORPUSCULAR HEMOGLOBIN 31.1 pg (27.0-31.0); MEAN CORPUSCULAR HGB CONC 34.3 g/dL (33.0-37.0); MEAN PLATELET VOLUME 8.7 fL (7.2-11.7); MONO # 0.6 K/uL (0.0-0.8); MONO % 8.8 % (0.0-10.0); NEUT # 5.1 K/uL (1.8-7.0); NEUT % 76.5 % (50.0-75.0); RBC 4.43 Mil/uL (4.40-5.90); RED CELL DISTRIBUTION WIDTH 13.2 % (11.5-14.5); WHITE BLOOD COUNT 6.7 K/uL (4.8-10.8)
[2017-09-12 06:43] LABS: ALB/GLOB RATIO 1.7 (1.0-2.1); ALT/SGPT 39 U/L (21-72); AST/SGOT 30 U/L (17-59); BLOOD UREA NITROGEN 19 mg/dL (9-20); GFR AFRICAN-AMERICAN > 60; GFR NON-AFRICAN AMERICAN > 60
--- NOTE | 2017-09-12 08:06 | CP.PCM.PN ---
Subjective - Date & Time of Evaluation Date of Evaluation: 09/12/17 Time of Evaluation: 08:00 - Subjective Subjective: Patient reports feeling well. Denied chest pain, denied shortness of breath, Yesterday he underwent cardiac catherization and per discussion with cardiology had proximal circumflex that was 99% stenosis. And about 50% stenosis in the proximal LAD. When he came out of production laborer he was briefly on a tridil ggt but per ICU staff shortly thereafter it was stopped and he did not need it overnight. He remains on Plavix, Lovenox SC BID, Statin, and BP control. Plan is for him to have additional stenting done at [facility] [place]. I am being told it will probably be sometime tommorow Objective - Vital Signs/Intake and Output Vital Signs (last 24 hours): Temp Pulse Resp BP Pulse Ox 98.6 F 69 21 121/83 97 09/12/17 04:00 09/12/17 07:00 09/12/17 07:00 09/12/17 07:00 09/12/17 07:00 Intake and Output: 09/12/17 09/12/17 06:59 18:59 Intake Total 350 120 Output Total 3 Balance 350 117 - Medications Medications: Current Medications Albuterol/Ipratropium (Duoneb 3 Mg/0.5 Mg (3 Ml) Ud) 3 ml INH RQ6 PRN PRN Reason: Wheezing Last Admin: 09/11/17 07:47 Dose: 3 ml Aspirin (Aspirin Chewable) 81 mg PO DAILY [facility] Last Admin: 09/11/17 09:30 Dose: 81 mg Carvedilol (Coreg) 3.125 mg PO BID [facility] Last Admin: 09/11/17 09:30 Dose: 3.125 mg Clopidogrel Bisulfate (Plavix) 75 mg PO DAILY [facility] Last Admin: 09/11/17 09:30 Dose: 75 mg Enoxaparin Sodium (Lovenox) 55 mg SC Q12 [facility] Last Admin: 09/11/17 22:03 Dose: 55 mg Nitroglycerin/Dextrose (Nitroglycerin 50 Mg/250 Ml D5w) 50 mg in 250 mls @ 3 mls/hr IV .Q24H [facility]; 10 MCG/MIN PRN Reason: Protocol Lisinopril (Zestril) 40 mg PO DAILY [facility] Last Admin: 09/11/17 09:30 Dose: 40 mg Rosuvastatin Calcium (Crestor) 20 mg PO HS [facility] Last Admin: 09/11/17 22:04 Dose: 20 mg - Labs Labs: 09/12/17 06:18 09/12/17 06:19 PT 10.2 SECONDS (9.7-12.2) 09/09/17 11:47 INR 0.9 09/09/17 11:47 APTT 32 SECONDS (21-34) 09/09/17 11:47 - Constitutional Appears: Well, No Acute Distress - Head Exam Head Exam: NORMAL INSPECTION - Eye Exam Eye Exam: EOMI, Normal appearance - ENT Exam ENT Exam: Mucous Membranes Moist - Respiratory Exam Respiratory Exam: Clear to Ausculation Bilateral - Cardiovascular Exam Cardiovascular Exam: REGULAR RHYTHM - GI/Abdominal Exam GI & Abdominal Exam: Soft, Normal Bowel Sounds. absent: Guarding, Rigid, Tenderness - Neurological Exam Neurological Exam: Alert, Awake, Oriented x3 Neuro motor strength exam: Left Upper Extremity: 5, Right Upper Extremity: 5, Left Lower Extremity: 5, Right Lower Extremity: 5 - Psychiatric Exam Psychiatric exam: Normal Affect, Normal Mood - Skin Skin Exam: Normal Color, Warm Assessment and Plan - Assessment and Plan (Free Text) Assessment: NSTEMI 09/12: The patient is S/P diagnostic cath. He had proximal circumflex that was 99 % stenosis. And about 50% stenosis in the proximal LAD. He is pending moving to [facility] [place] for additional stenting In the mean time he remains on Plavix, Statin, BB, SHARRI-I HTN 09/12: Currently stable in the 120 systolic and 110s systolic range Coreg 3.125mg po BID Lisinopril 40 mg po daily Hx CAD and previous stenting Continue Plavix 75mg po daily, ASA 81mg po daily, Crestor 20mg daily lipid panel: triglycerides: 122, cholesterol: 147, LDL: 87, HDL: 45 IGT managed with diet HgA1c: 5.9 Prophylaxis SCDs, Lovenox 55mg sc BID heart healthy moderate carb diet
[2017-09-12] MEDS: Enoxaparin 60 mg Syringe SC SCH ×2 (09:19→21:38)
--- NOTE | 2017-09-12 10:26 | CP.CCUPN ---
Addendum entered and electronically signed by Amy Perdomo DO 09/12/17 12:10 : [place] [facility] [place] [facility]. Original Note: <Amy Perdomo - Last Filed: 09/12/17 10:24> CCU Subjective - Physician Review Subjective (Free Text): Patient was seen and examined at bedside. Patient reports he is chest pain free. CCU Objective - Vital Signs / Intake & Output Vital Signs (Last 4 hours): Vital Signs Temp Pulse Resp BP Pulse Ox 09/12/17 09:00 88 19 134/100 H 95 09/12/17 08:45 91 H 17 124/92 H 94 L 09/12/17 08:30 88 15 133/88 94 L 09/12/17 08:15 63 14 121/77 97 09/12/17 08:00 97.8 F 64 15 115/87 98 09/12/17 07:45 64 15 108/78 97 09/12/17 07:30 62 15 107/77 97 09/12/17 07:15 63 13 113/74 97 09/12/17 07:00 69 21 121/83 97 09/12/17 06:50 70 21 96 09/12/17 06:45 81 17 119/86 98 09/12/17 06:40 75 16 98 09/12/17 06:30 54 L 14 113/68 98 Intake and Output (Last 8hrs): Intake & Output 09/11/17 09/12/17 09/12/17 22:59 06:59 14:59 Intake Total 350 120 Output Total 3 Balance 350 117 Weight 108 lb 2 oz Intake: Oral 350 120 Output: Urine 3 Urine, Voided 3 Other: # Voids Urine, Voided 850 - Physical Exam Other physical findings (Free Text): - Constitutional Appears: No Acute Distress - Head Exam Head Exam: ATRAUMATIC, NORMAL INSPECTION, NORMOCEPHALIC - Eye Exam Eye Exam: EOMI, Normal appearance Pupil Exam: NORMAL ACCOMODATION, PERRL - ENT Exam ENT Exam: Mucous Membranes Moist, Normal Exam - Neck Exam Neck exam: Positive for: Full Rom, Normal Inspection. Negative for: Lymphadenopathy, Tenderness - Respiratory Exam Respiratory Exam: Clear to Auscultation Bilateral. absent: Rales, Rhonchi, Wheezes - Cardiovascular Exam Cardiovascular Exam: REGULAR RHYTHM, RRR, +S1, +S2. absent: Gallop - GI/Abdominal Exam GI & Abdominal Exam: Normal Bowel Sounds, Soft. absent: Mass, Organomegaly, Tenderness - Rectal Exam Rectal Exam: Deferred - Extremities Exam Extremities exam: Positive for: full ROM, normal inspection. Negative for: calf tenderness, joint swelling, pedal edema - Back Exam Back exam: FULL ROM, NORMAL INSPECTION. absent: CVA tenderness (L), CVA tenderness (R) - Neurological Exam Neurological exam: Alert, CN II-XII Intact, Oriented x3, Reflexes Normal - Psychiatric Exam Psychiatric exam: Normal Affect, Normal Mood - Skin Skin Exam: Dry, Normal Color, Warm - Medications Active Medications: Active Medications Generic Name Dose Route Start Last Admin Trade Name Freq PRN Reason Stop Dose Admin Albuterol/Ipratropium 3 ml 09/10/17 07:45 09/11/17 07:47 Duoneb 3 Mg/0.5 Mg (3 Ml) Ud INH 3 ml RQ6 PRN Administration Wheezing Aspirin 81 mg 09/10/17 10:00 09/12/17 09:19 Aspirin Chewable PO 81 mg DAILY SANIA Administration Carvedilol 3.125 mg 09/10/17 10:00 09/12/17 09:19 Coreg PO 3.125 mg BID SANIA Administration Clopidogrel Bisulfate 75 mg 09/10/17 10:00 09/12/17 09:19 Plavix PO 75 mg DAILY SANIA Administration Enoxaparin Sodium 55 mg 09/09/17 22:00 09/12/17 09:19 Lovenox SC 55 mg Q12 SANIA Administration Lisinopril 40 mg 09/10/17 10:00 09/12/17 09:19 Zestril PO 40 mg DAILY SANIA Administration Rosuvastatin Calcium 20 mg 09/09/17 22:00 09/11/17 22:04 Crestor PO 20 mg HS SANIA Administration - Patient Studies Lab Studies: Lab Studies 09/12/17 09/12/17 Range/Units 06:19 06:18 WBC 6.7 (4.8-10.8) K/uL RBC 4.43 (4.40-5.90) Mil/uL Hgb 13.8 (12.0-18.0) g/dL Hct 40.2 (35.0-51.0) % MCV 90.7 (80.0-94.0) fL MCH 31.1 H (27.0-31.0) pg MCHC 34.3 (33.0-37.0) g/dL RDW 13.2 (11.5-14.5) % Plt Count 202 (130-400) K/uL MPV 8.7 (7.2-11.7) fL Neut % (Auto) 76.5 H (50.0-75.0) % Lymph % (Auto) 13.5 L (20.0-40.0) % [place] % (Auto) 8.8 (0.0-10.0) % Eos % (Auto) 1.1 (0.0-4.0) % Baso % (Auto) 0.1 (0.0-2.0) % Neut # (Auto) 5.1 (1.8-7.0) K/uL Lymph # (Auto) 0.9 L (1.0-4.3) K/uL [place] # (Auto) 0.6 (0.0-0.8) K/uL Eos # (Auto) 0.1 (0.0-0.7) K/uL Baso # (Auto) 0.0 (0.0-0.2) K/uL Sodium 138 (132-148) mmol/L Potassium 4.0 (3.6-5.2) mmol/L Chloride 104 (98-107) mmol/L Carbon Dioxide 25 (22-30) mmol/L Anion Gap 13 (10-20) BUN 19 (9-20) mg/dL Creatinine 0.7 L (0.8-1.5) mg/dL Est GFR ( Amer) > 60 Est GFR (Non-Af Amer) > 60 Random Glucose 105 (75-110) mg/dL Calcium 9.0 (8.6-10.4) mg/dl Phosphorus 4.8 H (2.5-4.5) mg/dL Magnesium 2.2 (1.6-2.3) mg/dL Total Bilirubin 0.5 (0.2-1.3) mg/dL AST 30 (17-59) U/L ALT 39 (21-72) U/L Alkaline Phosphatase 44 (38-126) U/L Total Protein 6.4 (6.3-8.3) g/dL Albumin 4.0 (3.5-5.0) g/dL Globulin 2.4 (2.2-3.9) gm/dL Albumin/Globulin Ratio 1.7 (1.0-2.1) Laboratory Results - last 24 hr 09/12/17 09/12/17 06:18 06:19 WBC 6.7 RBC 4.43 Hgb 13.8 Hct 40.2 MCV 90.7 MCH 31.1 H MCHC 34.3 RDW 13.2 Plt Count 202 MPV 8.7 Neut % (Auto) 76.5 H Lymph % (Auto) 13.5 L [place] % (Auto) 8.8 Eos % (Auto) 1.1 Baso % (Auto) 0.1 Neut # (Auto) 5.1 Lymph # (Auto) 0.9 L [place] # (Auto) 0.6 Eos # (Auto) 0.1 Baso # (Auto) 0.0 Sodium 138 Potassium 4.0 Chloride 104 Carbon Dioxide 25 Anion Gap 13 BUN 19 Creatinine 0.7 L Est GFR ( Amer) > 60 Est GFR (Non-Af Amer) > 60 Random Glucose 105 Calcium 9.0 Phosphorus 4.8 H Magnesium 2.2 Total Bilirubin 0.5 AST 30 ALT 39 Alkaline Phosphatase 44 Total Protein 6.4 Albumin 4.0 Globulin 2.4 Albumin/Globulin Ratio 1.7 EKG/Cardiology Studies: Cardiology / EKG Studies 09/11/17 19:04 EKG [ELECTROCARDIOGRAM] Stat Comment: Mode Of Transportation: PORTABLE Reason For Exam: /Chest Pain Precautions: Standard PERFORMING PHYSICIAN/PROVIDER:: Maria C Castañeda Critical Care Progress Note - Nutrition Nutrition: Nutrition Category Date Time Status NPO Diet [DIET] Diets 09/12/17 Breakfast Active Assessment/Plan - Assessment and Plan (Free Text) Plan: 61 years old male with hx of CAD s/p Stent, HTN was admitted to the [facility] on 09/09/17 for chest pain and found to have elevated troponins. He was taken to the slab polisher today 09/11/17 where the Proximal Left Circumflex Artery was found to be 99% stenosed. He refers chest pain when he was moved from the [facility] polisher stretcher to bed and bed to stretcher. Tridil was started by the Director Of Cardiopulmonary Services. #. NSTEMI s/p Stent with 99% stenosis of the Left Cercumflex artery - Dr aHrdy offal icer poultry on consult - Patient for Coronary artery stenting at [place] on 09/13/17 - Tridil drip was never started as patient was chest pain free upon arrival to ICU - ASA/Plavix/Coreg/Lovenox #. HTN - Lisinopril/Coreg - Follow Blood pressurs #. Asthma - Duoneb PRN #. CAD - ASA/Plavix/Crestor #. DVT Prophylaxis: SCD and The patient is on Lovenox #. Code Status: Full Disposition: Patient is downgraded to telemetry. DW Dr. Prieto Posey, Amy Perdomo DO, PGY-1 <Karla Posey - Last Filed: 09/12/17 17:15> CCU Objective - Vital Signs / Intake & Output Vital Signs (Last 4 hours): Vital Signs Temp Pulse Resp BP Pulse Ox 09/12/17 15:00 98.3 F 92 H 20 142/93 H 96 09/12/17 14:45 98 F 87 20 130/86 Intake and Output (Last 8hrs): Intake & Output 09/12/17 09/12/17 09/12/17 06:59 14:59 22:59 Intake Total 640 120 Output Total 853 Balance -213 120 Weight 108 lb 2 oz Intake: Oral 640 120 Output: Urine 853 Urine, Voided 853 Other: # Voids Urine, Voided 1 1 # Bowel Movements 0 - Medications Active Medications: Active Medications Generic Name Dose Route Start Last Admin Trade Name Freq PRN Reason Stop Dose Admin Albuterol/Ipratropium 3 ml 09/10/17 07:45 09/11/17 07:47 Duoneb 3 Mg/0.5 Mg (3 Ml) Ud INH 3 ml RQ6 PRN Administration Wheezing Aspirin 81 mg 09/10/17 10:00 09/12/17 09:19 Aspirin Chewable PO 81 mg DAILY SANIA Administration Carvedilol 3.125 mg 09/10/17 10:00 09/12/17 09:19 Coreg PO 3.125 mg BID SANIA Administration Clopidogrel Bisulfate 75 mg 09/10/17 10:00 09/12/17 09:19 Plavix PO 75 mg DAILY SANIA Administration Enoxaparin Sodium 55 mg 09/09/17 22:00 09/12/17 09:19 Lovenox SC 55 mg Q12 SANIA Administration Lisinopril 40 mg 09/10/17 10:00 09/12/17 09:19 Zestril PO 40 mg DAILY SANIA Administration Rosuvastatin Calcium 20 mg 09/09/17 22:00 09/11/17 22:04 Crestor PO 20 mg HS SANIA Administration - Patient Studies Lab Studies: Lab Studies 09/12/17 09/12/17 Range/Units 06:19 06:18 WBC 6.7 (4.8-10.8) K/uL RBC 4.43 (4.40-5.90) Mil/uL Hgb 13.8 (12.0-18.0) g/dL Hct 40.2 (35.0-51.0) % MCV 90.7 (80.0-94.0) fL MCH 31.1 H (27.0-31.0) pg MCHC 34.3 (33.0-37.0) g/dL RDW 13.2 (11.5-14.5) % Plt Count 202 (130-400) K/uL MPV 8.7 (7.2-11.7) fL Neut % (Auto) 76.5 H (50.0-75.0) % Lymph % (Auto) 13.5 L (20.0-40.0) % [place] % (Auto) 8.8 (0.0-10.0) % Eos % (Auto) 1.1 (0.0-4.0) % Baso % (Auto) 0.1 (0.0-2.0) % Neut # (Auto) 5.1 (1.8-7.0) K/uL Lymph # (Auto) 0.9 L (1.0-4.3) K/uL [place] # (Auto) 0.6 (0.0-0.8) K/uL Eos # (Auto) 0.1 (0.0-0.7) K/uL Baso # (Auto) 0.0 (0.0-0.2) K/uL Sodium 138 (132-148) mmol/L Potassium 4.0 (3.6-5.2) mmol/L Chloride 104 (98-107) mmol/L Carbon Dioxide 25 (22-30) mmol/L Anion Gap 13 (10-20) BUN 19 (9-20) mg/dL Creatinine 0.7 L (0.8-1.5) mg/dL Est GFR ( Amer) > 60 Est GFR (Non-Af Amer) > 60 Random Glucose 105 (75-110) mg/dL Calcium 9.0 (8.6-10.4) mg/dl Phosphorus 4.8 H (2.5-4.5) mg/dL Magnesium 2.2 (1.6-2.3) mg/dL Total Bilirubin 0.5 (0.2-1.3) mg/dL AST 30 (17-59) U/L ALT 39 (21-72) U/L Alkaline Phosphatase 44 (38-126) U/L Total Protein 6.4 (6.3-8.3) g/dL Albumin 4.0 (3.5-5.0) g/dL Globulin 2.4 (2.2-3.9) gm/dL Albumin/Globulin Ratio 1.7 (1.0-2.1) Laboratory Results - last 24 hr 09/12/17 09/12/17 06:18 06:19 WBC 6.7 RBC 4.43 Hgb 13.8 Hct 40.2 MCV 90.7 MCH 31.1 H MCHC 34.3 RDW 13.2 Plt Count 202 MPV 8.7 Neut % (Auto) 76.5 H Lymph % (Auto) 13.5 L [place] % (Auto) 8.8 Eos % (Auto) 1.1 Baso % (Auto) 0.1 Neut # (Auto) 5.1 Lymph # (Auto) 0.9 L [place] # (Auto) 0.6 Eos # (Auto) 0.1 Baso # (Auto) 0.0 Sodium 138 Potassium 4.0 Chloride 104 Carbon Dioxide 25 Anion Gap 13 BUN 19 Creatinine 0.7 L Est GFR ( Amer) > 60 Est GFR (Non-Af Amer) > 60 Random Glucose 105 Calcium 9.0 Phosphorus 4.8 H Magnesium 2.2 Total Bilirubin 0.5 AST 30 ALT 39 Alkaline Phosphatase 44 Total Protein 6.4 Albumin 4.0 Globulin 2.4 Albumin/Globulin Ratio 1.7 EKG/Cardiology Studies: Cardiology / EKG Studies 09/11/17 19:04 EKG [ELECTROCARDIOGRAM] Stat Comment: Mode Of Transportation: PORTABLE Reason For Exam: /Chest Pain Precautions: Standard PERFORMING PHYSICIAN/PROVIDER:: Maria C Castañeda Critical Care Progress Note - Nutrition Nutrition: Nutrition Category Date Time Status Heart Healthy Diet [DIET] Diets 09/12/17 Lunch Active NPO Diet [DIET] Diets 09/13/17 Breakfast Active Assessment/Plan - Assessment and Plan (Free Text) Plan: Patient seen and examined at bedside. Patient with underlying NSTEMI -continue treatment as per cardiology -Patient remains hemodynamically stable. - Date & Time Date: 09/12/17 Time: 17:15
--- NOTE | 2017-09-13 00:23 | CP.PCM.PN ---
Subjective - Date & Time of Evaluation Date of Evaluation: 09/12/17 Time of Evaluation: 11:05 - Subjective Subjective: Patient seen and evaluated For PCI tomorrow Objective - Vital Signs/Intake and Output Vital Signs (last 24 hours): Temp Pulse Resp BP Pulse Ox 98.3 F 92 H 20 142/93 H 96 09/12/17 15:00 09/12/17 15:00 09/12/17 15:00 09/12/17 15:00 09/12/17 15:00 Intake and Output: 09/12/17 09/13/17 18:59 06:59 Intake Total 760 250 Output Total 853 Balance -93 250 - Medications Medications: Current Medications Albuterol/Ipratropium (Duoneb 3 Mg/0.5 Mg (3 Ml) Ud) 3 ml INH RQ6 PRN PRN Reason: Wheezing Last Admin: 09/11/17 07:47 Dose: 3 ml Aspirin (Aspirin Chewable) 81 mg PO DAILY [facility] Last Admin: 09/12/17 09:19 Dose: 81 mg Carvedilol (Coreg) 3.125 mg PO BID [facility] Last Admin: 09/12/17 18:49 Dose: 3.125 mg Clopidogrel Bisulfate (Plavix) 75 mg PO DAILY [facility] Last Admin: 09/12/17 09:19 Dose: 75 mg Enoxaparin Sodium (Lovenox) 55 mg SC Q12 [facility] Last Admin: 09/12/17 21:38 Dose: Not Given Lisinopril (Zestril) 40 mg PO DAILY [facility] Last Admin: 09/12/17 09:19 Dose: 40 mg Rosuvastatin Calcium (Crestor) 20 mg PO HS [facility] Last Admin: 09/12/17 21:43 Dose: 20 mg - Labs Labs: 09/12/17 06:18 09/12/17 06:19 PT 10.2 SECONDS (9.7-12.2) 09/09/17 11:47 INR 0.9 09/09/17 11:47 APTT 32 SECONDS (21-34) 09/09/17 11:47
[2017-09-13 06:44] LABS: BASO % 0.4 % (0.0-2.0); EOS # 0.2 K/uL (0.0-0.7); EOS % 2.7 % (0.0-4.0); HEMOGLOBIN 14.6 g/dL (12.0-18.0); LYMPH % 16.1 % (20.0-40.0); MEAN CELL VOLUME 91.3 fL (80.0-94.0); MEAN CORPUSCULAR HEMOGLOBIN 31.1 pg (27.0-31.0); MEAN PLATELET VOLUME 8.6 fL (7.2-11.7); MONO # 0.6 K/uL (0.0-0.8); MONO % 9.8 % (0.0-10.0); NEUT # 4.5 K/uL (1.8-7.0); RBC 4.7 Mil/uL (4.40-5.90); RED CELL DISTRIBUTION WIDTH 13.1 % (11.5-14.5); WHITE BLOOD COUNT 6.3 K/uL (4.8-10.8)
[2017-09-13 06:56] LABS: ALB/GLOB RATIO 1.6 (1.0-2.1); ALBUMIN 4.3 g/dL (3.5-5.0); ALT/SGPT 147 U/L (21-72); AST/SGOT 164 U/L (17-59); BLOOD UREA NITROGEN 19 mg/dL (9-20); CALCIUM 9.2 mg/dl (8.6-10.4); GFR AFRICAN-AMERICAN > 60; GFR NON-AFRICAN AMERICAN > 60
--- NOTE | 2017-09-13 09:24 | CP.PCM.PN ---
Subjective - Date & Time of Evaluation Date of Evaluation: 09/13/17 Time of Evaluation: 09:20 - Subjective Subjective: Patient s/p L Cx stent (VANESSA) Plavix 75 daily for 1 year ASA 81, Statins, b blockers for life Ambulate after 12 noon today Resume diet Hydration Check labs in am If stable d/c home in am tomorrow Educate patient regarding diet and medication compliance No strenuous activities or driving till coming Saturday F/U with [facility] down stairs Objective - Vital Signs/Intake and Output Vital Signs (last 24 hours): Temp Pulse Resp BP Pulse Ox 98.1 F 51 L 20 135/75 98 09/12/17 23:30 09/13/17 04:00 09/12/17 23:30 09/12/17 23:30 09/12/17 23:30 Intake and Output: 09/13/17 09/13/17 06:59 18:59 Intake Total 250 Balance 250 - Medications Medications: Current Medications Albuterol/Ipratropium (Duoneb 3 Mg/0.5 Mg (3 Ml) Ud) 3 ml INH RQ6 PRN PRN Reason: Wheezing Last Admin: 09/11/17 07:47 Dose: 3 ml Aspirin (Aspirin Chewable) 81 mg PO DAILY [facility] Last Admin: 09/13/17 06:48 Dose: 81 mg Carvedilol (Coreg) 3.125 mg PO BID [facility] Last Admin: 09/12/17 18:49 Dose: 3.125 mg Clopidogrel Bisulfate (Plavix) 75 mg PO DAILY [facility] Last Admin: 09/13/17 06:48 Dose: 75 mg Lisinopril (Zestril) 40 mg PO DAILY [facility] Last Admin: 09/12/17 09:19 Dose: 40 mg Rosuvastatin Calcium (Crestor) 20 mg PO HS [facility] Last Admin: 09/12/17 21:43 Dose: 20 mg - Labs Labs: 09/13/17 06:34 09/13/17 06:34 PT 10.2 SECONDS (9.7-12.2) 09/09/17 11:47 INR 0.9 09/09/17 11:47 APTT 32 SECONDS (21-34) 09/09/17 11:47
--- NOTE | 2017-09-13 15:53 | CP.PCM.PN ---
Subjective - Date & Time of Evaluation Date of Evaluation: 09/13/17 Time of Evaluation: 15:52 - Subjective Subjective: Pgy2- Progress not for Dr. Maria Patient seen and examined at bedside and in no acute distress. Patient s/p L Cx stent. Patient has no chest pain, shortness of breath, abdominal pain, nausea, vomiting, constipation, or diarrhea. Objective - Vital Signs/Intake and Output Vital Signs (last 24 hours): Temp Pulse Resp BP Pulse Ox 98.5 F 84 18 108/69 95 09/13/17 14:25 09/13/17 14:44 09/13/17 14:25 09/13/17 14:25 09/13/17 14:25 Intake and Output: 09/13/17 09/13/17 06:59 18:59 Intake Total 250 Balance 250 - Medications Medications: Current Medications Albuterol/Ipratropium (Duoneb 3 Mg/0.5 Mg (3 Ml) Ud) 3 ml INH RQ6 PRN PRN Reason: Wheezing Last Admin: 09/11/17 07:47 Dose: 3 ml Aspirin (Aspirin Chewable) 81 mg PO DAILY [facility] Last Admin: 09/13/17 09:59 Dose: Not Given Carvedilol (Coreg) 3.125 mg PO BID [facility] Last Admin: 09/13/17 10:00 Dose: Not Given Clopidogrel Bisulfate (Plavix) 75 mg PO DAILY [facility] Last Admin: 09/13/17 10:00 Dose: Not Given Enoxaparin Sodium (Lovenox) 30 mg SC DAILY [facility] Lisinopril (Zestril) 40 mg PO DAILY [facility] Last Admin: 09/13/17 14:32 Dose: 40 mg Rosuvastatin Calcium (Crestor) 20 mg PO [facility] Last Admin: 09/12/17 21:43 Dose: 20 mg - Labs Labs: 09/13/17 06:34 09/13/17 06:34 PT 10.2 SECONDS (9.7-12.2) 09/09/17 11:47 INR 0.9 09/09/17 11:47 APTT 32 SECONDS (21-34) 09/09/17 11:47 - Additional Findings Additional findings: - Constitutional Appears: Well, No Acute Distress - Head Exam Head Exam: NORMAL INSPECTION - Eye Exam Eye Exam: EOMI, Normal appearance - ENT Exam ENT Exam: Mucous Membranes Moist - Respiratory Exam Respiratory Exam: Clear to Ausculation Bilateral - Cardiovascular Exam Cardiovascular Exam: REGULAR RHYTHM - GI/Abdominal Exam GI & Abdominal Exam: Soft, Normal Bowel Sounds. absent: Guarding, Rigid, Tenderness hematoma at femoral cath insertion site on right covered in c/d/i bandage - Neurological Exam Neurological Exam: Alert, Awake, Oriented x3 Neuro motor strength exam: Left Upper Extremity: 5, Right Upper Extremity: 5, Left Lower Extremity: 5, Right Lower Extremity: 5 - Psychiatric Exam Psychiatric exam: Normal Affect, Normal Mood - Skin Skin Exam: Normal Color, Warm Assessment and Plan - Assessment and Plan (Free Text) Assessment: NSTEMI s/p L Cx stent (VANESSA) on 09/13 09/12: The patient is S/P diagnostic cath. He had proximal circumflex that was 99 % stenosis. And about 50% stenosis in the proximal LAD. He is pending moving to [facility] [place] additional stenting Plavix daily for 1 year ASA 81mg, Statin, BB for life HTN 09/12: Currently stable in the 120 systolic and 110s systolic range Coreg 3.125mg po BID Lisinopril 40 mg po daily Hx CAD and previous stenting Continue Plavix 75mg po daily, ASA 81mg po daily, Crestor 20mg daily lipid panel: triglycerides: 122, cholesterol: 147, LDL: 87, HDL: 45 IGT managed with diet HgA1c: 5.9 Prophylaxis SCDs, Lovenox 55mg sc BID heart healthy moderate carb diet
[2017-09-13 17:06] VITALS: RESP 20
[2017-09-14 06:46] LABS: BASO % 0.2 % (0.0-2.0); EOS # 0.1 K/uL (0.0-0.7); EOS % 1.4 % (0.0-4.0); HEMOGLOBIN 12.6 g/dL (12.0-18.0); LYMPH # 0.9 K/uL (1.0-4.3); LYMPH % 10.2 % (20.0-40.0); MEAN CELL VOLUME 91.2 fL (80.0-94.0); MEAN CORPUSCULAR HEMOGLOBIN 31.2 pg (27.0-31.0); MEAN CORPUSCULAR HGB CONC 34.3 g/dL (33.0-37.0); MEAN PLATELET VOLUME 8.9 fL (7.2-11.7); MONO # 0.8 K/uL (0.0-0.8); MONO % 9.1 % (0.0-10.0); NEUT # 7.2 K/uL (1.8-7.0); NEUT % 79.1 % (50.0-75.0); RBC 4.04 Mil/uL (4.40-5.90); RED CELL DISTRIBUTION WIDTH 13.6 % (11.5-14.5); WHITE BLOOD COUNT 9.1 K/uL (4.8-10.8)
[2017-09-14 07:13] LABS: ALB/GLOB RATIO 1.5 (1.0-2.1); ALBUMIN 3.7 g/dL (3.5-5.0); ALT/SGPT 182 U/L (21-72); AST/SGOT 140 U/L (17-59); BLOOD UREA NITROGEN 18 mg/dL (9-20); CALCIUM 8.6 mg/dl (8.6-10.4); GFR AFRICAN-AMERICAN > 60; GFR NON-AFRICAN AMERICAN > 60
[2017-09-14 08:30] VITALS: BP 129/80; PULSE 62; TEMP 98; O2SAT 96
[2017-09-14] MEDS ORDERED: Enoxaparin 30 mg Syringe SC SCH (10:00)
--- NOTE | 2017-09-14 15:09 | CP.PCM.DIS ---
<Anastasia Vang - Last Filed: 09/14/17 15:02> Provider - Provider Date of Admission: 09/09/17 12:40 Attending physician: Primo Maria DO Consults: Dr. Hardy Time Spent in preparation of Discharge (in minutes): 45 Diagnosis - Discharge Diagnosis (1) NSTEMI (non-ST elevated myocardial infarction) Status: Acute (2) CAD (coronary artery disease) Status: Chronic (3) HTN (hypertension) Status: Chronic Hospital Course - Lab Results Lab Results: Micro Results 09/11/17 21:26 Naris MRSA Culture (Admit) - Final MRSA NOT DETECTED Most Recent Lab Values WBC 9.1 K/uL (4.8-10.8) 09/14/17 06:36 RBC 4.04 Mil/uL (4.40-5.90) L 09/14/17 06:36 Hgb 12.6 g/dL (12.0-18.0) D 09/14/17 06:36 Hct 36.9 % (35.0-51.0) 09/14/17 06:36 MCV 91.2 fL (80.0-94.0) 09/14/17 06:36 MCH 31.2 pg (27.0-31.0) H 09/14/17 06:36 MCHC 34.3 g/dL (33.0-37.0) 09/14/17 06:36 RDW 13.6 % (11.5-14.5) 09/14/17 06:36 Plt Count 172 K/uL (130-400) 09/14/17 06:36 MPV 8.9 fL (7.2-11.7) 09/14/17 06:36 Neut % (Auto) 79.1 % (50.0-75.0) H 09/14/17 06:36 Lymph % (Auto) 10.2 % (20.0-40.0) L 09/14/17 06:36 [place] % (Auto) 9.1 % (0.0-10.0) 09/14/17 06:36 Eos % (Auto) 1.4 % (0.0-4.0) 09/14/17 06:36 Baso % (Auto) 0.2 % (0.0-2.0) 09/14/17 06:36 Neut # (Auto) 7.2 K/uL (1.8-7.0) H 09/14/17 06:36 Lymph # (Auto) 0.9 K/uL (1.0-4.3) L 09/14/17 06:36 [place] # (Auto) 0.8 K/uL (0.0-0.8) 09/14/17 06:36 Eos # (Auto) 0.1 K/uL (0.0-0.7) 09/14/17 06:36 Baso # (Auto) 0.0 K/uL (0.0-0.2) 09/14/17 06:36 PT 10.2 SECONDS (9.7-12.2) 09/09/17 11:47 INR 0.9 09/09/17 11:47 APTT 32 SECONDS (21-34) 09/09/17 11:47 D-Dimer, Quantitative < 200 ng/mlDDU (0-243) 09/09/17 16:58 Sodium 138 mmol/L (132-148) 09/14/17 06:36 Potassium 4.3 mmol/L (3.6-5.2) 09/14/17 06:36 Chloride 104 mmol/L (98-107) 09/14/17 06:36 Carbon Dioxide 24 mmol/L (22-30) 09/14/17 06:36 Anion Gap 15 (10-20) 09/14/17 06:36 BUN 18 mg/dL (9-20) 09/14/17 06:36 Creatinine 0.6 mg/dL (0.8-1.5) L 09/14/17 06:36 Est GFR ( Amer) > 60 09/14/17 06:36 Est GFR (Non-Af Amer) > 60 09/14/17 06:36 Random Glucose 112 mg/dL (75-110) H 09/14/17 06:36 Hemoglobin A1c 5.9 % (4.2-6.5) 09/10/17 06:19 Calcium 8.6 mg/dl (8.6-10.4) 09/14/17 06:36 Phosphorus 4.1 mg/dL (2.5-4.5) 09/14/17 06:36 Magnesium 2.1 mg/dL (1.6-2.3) 09/14/17 06:36 Total Bilirubin 0.5 mg/dL (0.2-1.3) 09/14/17 06:36 AST 140 U/L (17-59) H 09/14/17 06:36 ALT 182 U/L (21-72) H D 09/14/17 06:36 Alkaline Phosphatase 56 U/L (38-126) 09/14/17 06:36 Total Creatine Kinase 160 U/L (55-170) 09/09/17 21:59 CK-MB (Mass) 1.57 ng/mL (0.0-3.38) 09/09/17 21:59 Troponin I 0.1470 ng/mL (0.00-0.120) H* 09/09/17 21:59 NT-Pro-B Natriuret Pep 118 pg/mL (0-900) 09/09/17 11:47 Total Protein 6.2 g/dL (6.3-8.3) L 09/14/17 06:36 Albumin 3.7 g/dL (3.5-5.0) 09/14/17 06:36 Globulin 2.5 gm/dL (2.2-3.9) 09/14/17 06:36 Albumin/Globulin Ratio 1.5 (1.0-2.1) 09/14/17 06:36 Triglycerides 122 mg/dL (0-149) D 09/10/17 06:20 Cholesterol 147 mg/dL (0-199) 09/10/17 06:20 LDL Cholesterol Direct 87 mg/dL (0-129) 09/10/17 06:20 HDL Cholesterol 45 mg/dL (30-70) 09/10/17 06:20 Free T4 1.27 ng/dL (0.78-2.19) 09/09/17 16:49 TSH 3rd Generation 0.38 mIU/L (0.46-4.68) L 09/09/17 16:46 Urine Color Yellow (YELLOW) 09/09/17 11:57 Urine Clarity Clear (Clear) 09/09/17 11:57 Urine pH 6.0 (5.0-8.0) 09/09/17 11:57 Ur Specific [place] 1.015 (1.003-1.030) 09/09/17 11:57 Urine Protein Negative mg/dL (NEGATIVE) 09/09/17 11:57 Urine Glucose (UA) Normal mg/dL (Normal) 09/09/17 11:57 Urine Ketones Negative mg/dL (NEGATIVE) 09/09/17 11:57 Urine Blood Negative (NEGATIVE) 09/09/17 11:57 Urine Nitrate Negative (NEGATIVE) 09/09/17 11:57 Urine Bilirubin Negative (NEGATIVE) 09/09/17 11:57 Urine Urobilinogen Normal mg/dL (0.2-1.0) 09/09/17 11:57 Ur Leukocyte Esterase Neg [place]/uL (Negative) 09/09/17 11:57 Urine RBC (Auto) 2 /hpf (0-3) 09/09/17 11:57 Urine Opiates Screen Negative (NEGATIVE) 09/09/17 16:46 Urine Methadone Screen Negative (NEGATIVE) 09/09/17 16:46 Ur Barbiturates Screen Negative (NEGATIVE) 09/09/17 16:46 Ur Phencyclidine Scrn Negative (NEGATIVE) 09/09/17 16:46 Ur Amphetamines Screen Negative (NEGATIVE) 09/09/17 16:46 U Benzodiazepines Scrn Negative (NEGATIVE) 09/09/17 16:46 U Oth Cocaine Metabols Negative (NEGATIVE) 09/09/17 16:46 U Cannabinoids Screen Negative (NEGATIVE) 09/09/17 16:46 - Hospital Course Hospital Course: "Patient is a 61 y/o M with PMHx of CAD, SC and stent in 2012, HTN, asthma, IGT who presents today for chest pain. Patient says today he was walking to work which he normally does everyday with no limitation. Today patient had a tightness and burning in his chest which he rated 6/10 and some shortness of breath and nausea. Patient had to take a break in the middle of his walk. He also noticed some right arm heaviness and numbness of note 1 week ago patient had a similar episode of arm heaviness after exercise. Patient says his chest pain is different than when he had his SC in 2012 because it resolves with rest. At rest patient has no complaints. His arm heaviness has resolved. He denies any headaches, vomiting, abdominal pain, diarrhea, or constipation." Patient admitted for chest pain with elevated troponins. Patient was treated with Plavix, ASA and therapeutic Lovenox. Dr. Hardy was consulted who did a cardiac cath and found proximal circumflex that was 99% stenosis and about 50% stenosis in the proximal LAD. Patient went to [facility] on 09/13 and had a L Cx stent placed. Upon discharge patient has no chest pain or catheter site pain. Patient will need to be on Plavix for 1 year and Aspirin, statin, and beta yeny for life. For patient's hypertension he was treated with Coreg 3.125mg po BID and Lisinopril 40 mg po daily. Upon discharge patient's pain had completely resolved. This is a summary of the patient's hospital course, please see chart for full details. Discharge Exam - Additional Findings Additional findings: - Constitutional Appears: Well, No Acute Distress - Head Exam Head Exam: NORMAL INSPECTION - Eye Exam Eye Exam: EOMI, Normal appearance - ENT Exam ENT Exam: Mucous Membranes Moist - Respiratory Exam Respiratory Exam: Clear to Ausculation Bilateral - Cardiovascular Exam Cardiovascular Exam: REGULAR RHYTHM - GI/Abdominal Exam GI & Abdominal Exam: Soft, Normal Bowel Sounds. absent: Guarding, Rigid, Tenderness hematoma at femoral cath insertion site on right covered in c/d/i bandage - Neurological Exam Neurological Exam: Alert, Awake, Oriented x3 Neuro motor strength exam: Left Upper Extremity: 5, Right Upper Extremity: 5, Left Lower Extremity: 5, Right Lower Extremity: 5 - Psychiatric Exam Psychiatric exam: Normal Affect, Normal Mood - Skin Skin Exam: Normal Color, Warm Discharge Plan - Discharge Medications Prescriptions: Aspirin [Aspirin Chewable] 81 mg PO DAILY #30 chew Carvedilol [Coreg] 3.125 mg PO BID #60 tab Clopidogrel [Plavix] 75 mg PO DAILY #30 tab Lisinopril [Zestril] 40 mg PO DAILY #30 tab Simvastatin 40 mg PO HS #30 tablet - Follow Up Plan Condition: STABLE Disposition: HOME/ ROUTINE Instructions: Heart Healthy Diet, Cardiac Catheterization (DC), Heart Attack ( DC), Chest Pain (DC), Bradycardia (DC) Additional Instructions: Patient stable for discharge as per Dr. Mraia and Dr. Hardy. Patient to take the following medications: ASA 81 mg daily Carvedilol 3.125mg twice a day Clopidogrel 75mg daily Lisinopril 40mg daily Simvastatin 40 mg at night Patient to follow up with the clinic either at [facility], [place] ([phone]) or at [place] ([phone]) Referrals: [facility] [Provider Group] Pedro Hardy MD [Staff Provider] - <Primo Maria - Last Filed: 09/15/17 08:16> Provider - Provider Date of Admission: 09/09/17 12:40 Attending physician: Primo Maria DO Hospital Course - Lab Results Lab Results: Micro Results 09/12/17 15:40 Mrsa Screen MRSA Culture - Final MRSA NOT DETECTED 09/11/17 21:26 Naris MRSA Culture (Admit) - Final MRSA NOT DETECTED Most Recent Lab Values WBC 9.1 K/uL (4.8-10.8) 09/14/17 06:36 RBC 4.04 Mil/uL (4.40-5.90) L 09/14/17 06:36 Hgb 12.6 g/dL (12.0-18.0) D 09/14/17 06:36 Hct 36.9 % (35.0-51.0) 09/14/17 06:36 MCV 91.2 fL (80.0-94.0) 09/14/17 06:36 MCH 31.2 pg (27.0-31.0) H 09/14/17 06:36 MCHC 34.3 g/dL (33.0-37.0) 09/14/17 06:36 RDW 13.6 % (11.5-14.5) 09/14/17 06:36 Plt Count 172 K/uL (130-400) 09/14/17 06:36 MPV 8.9 fL (7.2-11.7) 09/14/17 06:36 Neut % (Auto) 79.1 % (50.0-75.0) H 09/14/17 06:36 Lymph % (Auto) 10.2 % (20.0-40.0) L 09/14/17 06:36 [place] % (Auto) 9.1 % (0.0-10.0) 09/14/17 06:36 Eos % (Auto) 1.4 % (0.0-4.0) 09/14/17 06:36 Baso % (Auto) 0.2 % (0.0-2.0) 09/14/17 06:36 Neut # (Auto) 7.2 K/uL (1.8-7.0) H 09/14/17 06:36 Lymph # (Auto) 0.9 K/uL (1.0-4.3) L 09/14/17 06:36 [place] # (Auto) 0.8 K/uL (0.0-0.8) 09/14/17 06:36 Eos # (Auto) 0.1 K/uL (0.0-0.7) 09/14/17 06:36 Baso # (Auto) 0.0 K/uL (0.0-0.2) 09/14/17 06:36 PT 10.2 SECONDS (9.7-12.2) 09/09/17 11:47 INR 0.9 09/09/17 11:47 APTT 32 SECONDS (21-34) 09/09/17 11:47 D-Dimer, Quantitative < 200 ng/mlDDU (0-243) 09/09/17 16:58 Sodium 138 mmol/L (132-148) 09/14/17 06:36 Potassium 4.3 mmol/L (3.6-5.2) 09/14/17 06:36 Chloride 104 mmol/L (98-107) 09/14/17 06:36 Carbon Dioxide 24 mmol/L (22-30) 09/14/17 06:36 Anion Gap 15 (10-20) 09/14/17 06:36 BUN 18 mg/dL (9-20) 09/14/17 06:36 Creatinine 0.6 mg/dL (0.8-1.5) L 09/14/17 06:36 Est GFR ( Amer) > 60 09/14/17 06:36 Est GFR (Non-Af Amer) > 60 09/14/17 06:36 Random Glucose 112 mg/dL (75-110) H 09/14/17 06:36 Hemoglobin A1c 5.9 % (4.2-6.5) 09/10/17 06:19 Calcium 8.6 mg/dl (8.6-10.4) 09/14/17 06:36 Phosphorus 4.1 mg/dL (2.5-4.5) 09/14/17 06:36 Magnesium 2.1 mg/dL (1.6-2.3) 09/14/17 06:36 Total Bilirubin 0.5 mg/dL (0.2-1.3) 09/14/17 06:36 AST 140 U/L (17-59) H 09/14/17 06:36 ALT 182 U/L (21-72) H D 09/14/17 06:36 Alkaline Phosphatase 56 U/L (38-126) 09/14/17 06:36 Total Creatine Kinase 160 U/L (55-170) 09/09/17 21:59 CK-MB (Mass) 1.57 ng/mL (0.0-3.38) 09/09/17 21:59 Troponin I 0.1470 ng/mL (0.00-0.120) H* 09/09/17 21:59 NT-Pro-B Natriuret Pep 118 pg/mL (0-900) 09/09/17 11:47 Total Protein 6.2 g/dL (6.3-8.3) L 09/14/17 06:36 Albumin 3.7 g/dL (3.5-5.0) 09/14/17 06:36 Globulin 2.5 gm/dL (2.2-3.9) 09/14/17 06:36 Albumin/Globulin Ratio 1.5 (1.0-2.1) 09/14/17 06:36 Triglycerides 122 mg/dL (0-149) D 09/10/17 06:20 Cholesterol 147 mg/dL (0-199) 09/10/17 06:20 LDL Cholesterol Direct 87 mg/dL (0-129) 09/10/17 06:20 HDL Cholesterol 45 mg/dL (30-70) 09/10/17 06:20 Free T4 1.27 ng/dL (0.78-2.19) 09/09/17 16:49 TSH 3rd Generation 0.38 mIU/L (0.46-4.68) L 09/09/17 16:46 Urine Color Yellow (YELLOW) 09/09/17 11:57 Urine Clarity Clear (Clear) 09/09/17 11:57 Urine pH 6.0 (5.0-8.0) 09/09/17 11:57 Ur Specific [place] 1.015 (1.003-1.030) 09/09/17 11:57 Urine Protein Negative mg/dL (NEGATIVE) 09/09/17 11:57 Urine Glucose (UA) Normal mg/dL (Normal) 09/09/17 11:57 Urine Ketones Negative mg/dL (NEGATIVE) 09/09/17 11:57 Urine Blood Negative (NEGATIVE) 09/09/17 11:57 Urine Nitrate Negative (NEGATIVE) 09/09/17 11:57 Urine Bilirubin Negative (NEGATIVE) 09/09/17 11:57 Urine Urobilinogen Normal mg/dL (0.2-1.0) 09/09/17 11:57 Ur Leukocyte Esterase Neg [place]/uL (Negative) 09/09/17 11:57 Urine RBC (Auto) 2 /hpf (0-3) 09/09/17 11:57 Urine Opiates Screen Negative (NEGATIVE) 09/09/17 16:46 Urine Methadone Screen Negative (NEGATIVE) 09/09/17 16:46 Ur Barbiturates Screen Negative (NEGATIVE) 09/09/17 16:46 Ur Phencyclidine Scrn Negative (NEGATIVE) 09/09/17 16:46 Ur Amphetamines Screen Negative (NEGATIVE) 09/09/17 16:46 U Benzodiazepines Scrn Negative (NEGATIVE) 09/09/17 16:46 U Oth Cocaine Metabols Negative (NEGATIVE) 09/09/17 16:46 U Cannabinoids Screen Negative (NEGATIVE) 09/09/17 16:46 Attending/Attestation - Attestation I have personally seen and examined this patient.: Yes I have fully participated in the care of the patient.: Yes I have reviewed all pertinent clinical information, including history, physical exam and plan: Yes Notes (Text): 09/15/17 08:12 Medical attending: Patient was seen and examined by me. Agree with the above note by the resident Patient reported feeling well. He denied chest pain and denied shortness of breath. The patient was able to stand up and walk with us on physicial exam and did ok. As mentioned previously he has had one stent placed in. He now has a total of two stents We strongly encourgaed him to be compliant with his medications Primo Maria
== END 2017-09-14 13:10 | disposition home or self-care (01) | DRG 853 ==
LOC: C.ER 10:43 → C.9E 12:40 → C.6T 14:28 → C.9I 09-11 19:31 → C.6T 09-12 14:12
PROVIDERS: ADMIT Hospitalist; ATTEND Hospitalist
PROC: 4A023N7 Measurement of Cardiac Sampling and Pressure, Left Heart, Percutaneous Approach (ICD-10-PCS; 2017-09-11)
PROC: B2151ZZ Fluoroscopy of Left Heart using Low Osmolar Contrast (ICD-10-PCS; 2017-09-11)
PROC: B2111ZZ Fluoroscopy of Multiple Coronary Arteries using Low Osmolar Contrast (ICD-10-PCS; 2017-09-11)
PROC: 027034Z Dilation of Coronary Artery, One Artery with Drug-eluting Intraluminal Device, Percutaneous Approach (ICD-10-PCS; principal; 2017-09-13)
DX: I21.4 Non-ST elevation (NSTEMI) myocardial infarction (principal); I25.10 Atherosclerotic heart disease of native coronary artery without angina pectoris; T82.855A Stenosis of coronary artery stent, initial encounter; I10 Essential (primary) hypertension; R00.1 Bradycardia, unspecified; E78.5 Hyperlipidemia, unspecified; E78.00 Pure hypercholesterolemia, unspecified; J45.909 Unspecified asthma, uncomplicated; Y83.1 Surgical operation with implant of artificial internal device as the cause of abnormal reaction of the patient, or of later complication, without mention of misadventure at the time of the procedure; I25.2 Old myocardial infarction; Z79.82 Long term (current) use of aspirin; Z79.02 Long term (current) use of antithrombotics/antiplatelets; Z79.899 Other long term (current) drug therapy; Z87.891 Personal history of nicotine dependence; Z90.49 Acquired absence of other specified parts of digestive tract